=== PATIENT | female | born 1970 | race Caucasian/White ===

== ENCOUNTER 2023-10-11 13:42 | Emergency (ER) | payer BC, SELFPAY ==
[2023-10-11 13:45] VITALS: BP 150/90
[2023-10-11 14:18] VITALS: BP 142/76
[2023-10-11 14:20] VITALS: BMI 22.7
--- NOTE | 2023-10-11 14:25 | EDRN ---
the pt was brought from the waiting room to Bed #4, the pt changed into a gown and is resting in stretcher, this RN placed the pt on monitor, pt is NSR in the 80's, RA Sp02 96%, no s/s of distress, pt sounds coarse and has a slight expiratory
wheeze, the pt is not tachypnic, the pt stated to this RN, 'I just feel like my throat is tight and it has felt like it is closing since 8am', the pt handed this RN a form that is from [employer] and it is an Emergency Room
Response Plan, this was given to provider, the pt is resting in stretcher in the lowest position, side rails up x2, call red within reach, HOB elevated, will continue to monitor the pt closely
--- NOTE | 2023-10-11 14:50 | ED.GENMED ---
History of Present Illness
General
Chief Complaint: Allergic Reaction
Source: patient
Exam Limitations: none
Time Seen by Provider: 10/11/23 14:41
Nursing documentation reviewed up to this point in time: agreed with
Travel History
Have you had any contact with someone who has COVID-19?: No
Do you have any symptoms of coronavirus? Fever > 100 degrees, chills, cough, shortness of breath, sore throat, loss of taste or smell, muscle aches, or headache?: No
History of Present Illness
History of Present Illness:
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
swelling up gave herself an epi shot p.o. Benadryl steroid and H2 shadia here she continues to feel little bit hoarse with swelling in her throat no nausea or vomiting no wheezing
Past History
Past History
ED Past Medical History: Other (migraines mast cell activation)
ED Past Surgical History: Appendectomy and Gynecological; Negative
Social History
Tobacco: Non-smoker
Alcohol: None
Drug: None
Personal:
Living: with family
Employment: Employed
Family History
Family History: Hypertension; Negative Diabetes
Review of Systems
Review of Systems
All Other Systems: Not applicable
Constitutional: Denies fever or fatigue
EENT: Reports mouth swelling and other
Respiratory: Denies cough or trouble breathing
Cardiac: Reports no symptoms
ABD/GI: Reports no symptoms
: Reports no symptoms
Musculoskeletal: Reports no symptoms
Skin: Reports no symptoms
Phy Exam
Physical Exam
Physical Exam:
Physical Exam
General: no apparent distress, not acutely ill
Neck: Posterior pharynx uvula appears swollen voice appears slightly hoarse
Heart: s1/s2 regular rate and rhythm, no murmur. equal radial pulses.
Lungs: no acute respiratory distress. clear bilaterally without wheeze
Abdomen: Nontender
Neuro: alert and oriented. no focal neurological deficits
Skin: no rash
Psychiatric: well kept. interactive and cooperative
Extremities: no edema.
Course
Orders/Labs/Results
Orders:
Orders
10/11/23 14:48
IV Insert/Care/Rem.- Treatment PRN
0.9% Sodium Chloride 1000 ml [Nss] 1,000 ml IV BOLUS
Diphenhydramine [Benadryl] 25 mg IV NOW STA
EPINEPHrine PF [Adrenalin] 0.3 mg IM NOW STA
Vital Signs
Initial and Last Documented VS:
Initial Vital Signs
Temp Pulse Resp BP Pulse Ox
98.2 F 92 16 150/90 99
10/11/23 13:45 10/11/23 13:45 10/11/23 13:45 10/11/23 13:45 10/11/23 13:45
Last Documented Vital Signs
Temp Pulse Resp BP Pulse Ox
98.2 F 83 13 102/65 98
10/11/23 13:45 10/11/23 16:30 10/11/23 16:30 10/11/23 16:00 10/11/23 16:30
MDM/Problems Addressed
Differential Diagnosis Includes:
Allergic reaction mast activation syndrome,
MDM/Problems Addressed:
Allergic mast cell activation
Chronic conditions affecting care:
Mast cell activation allergy
*Pulse Oximetry
Patient hypoxic: no
*Patent Agent Interpretation
Rate: normal
Interpretation: normal
Heart Rate: 78
Rhythm: sinus
*Critical Care Note
Total Time (30-74mins, 75-104mins- exclusive of procedures): 12
Update Note
Update Note:
Will redose her with epi and Benadryl, still has some mild symptoms
5 PM, patient appears comfortable minimal swelling of her uvula at this time, hoarseness is improved she subjectively feels better
ED Attending Note
-
Portions of this chart may have been created with voice recognition software.� Occasional wrong word or��sound alike� substitutions may have occurred due to the inherent limitations of voice recognition software.
Discharge Plan
Departure
Patient Disposition: Home (Routine Discharge)
Date of Disposition: 10/11/23
Time of Disposition: 17:01
Patient with high blood pressure during this ER visit?: No
Condition: Good
Discharge Problem:
Allergic reaction
Instructions: Allergic Reaction ED
Prescriptions:
New
prednisone 20 mg tablet
40 mg PO DAILY Qty: 8 0RF
epinephrine [EpiPen] 0.3 mg/0.3 mL auto-injector
0.3 mg IM .STAT PRN (Reason: anaphylaxis) Qty: 1 6RF
No Action
ascorbic acid (vitamin C) [Vitamin C] 500 MG tablet
1,000 mg PO DAILY
acetaminophen [Tylenol Extra Strength] 500 MG tablet
1,000 mg PO PRN PRN (Reason: headaches)
lorazepam 0.5 MG tablet
0.5 mg PO HS PRN (Reason: panic attack-PTSD)
diphenhydramine HCl [Banophen] 25 MG capsule
1 - 2 tab PO HS PRN (Reason: allergies, sleep)
azelastine 1 SPRAY aerosol,spray
1 spray intranasal BID
albuterol sulfate [Ventolin HFA] 90 MCG/PUFF HFA aerosol inhaler
1 puff inhalation PRN PRN (Reason: allergies)
fluticasone propionate 1 SPRAY spray,suspension
1 spray intranasal BID
biotin-folic acid-B comp C 1 TAB tablet
1 tab PO DAILY
fexofenadine-pseudoephedrine [Alayna-D 24 Hour] 1 EACH tablet extended release 24 hr
1 ea PO DAILY
budesonide-formoterol [Symbicort] 1 PUFF HFA aerosol inhaler
1 puff inhalation BID PRN (Reason: allergies)
Bone Strong
2 tab PO DAILY
Turmeric
740 mg PO DAILY
hydrocodone-acetaminophen 1 TABLET tablet
1 - 2 tab PO Q4HPRN PRN (Reason: Mod-severe pain) 7 Days Qty: 30 0RF
clarithromycin [Biaxin XL] 500 MG tablet extended release 24 hr
500 mg PO BID 7 Days Qty: 14 0RF
oxycodone-acetaminophen 5 MG/325 MG tablet
1 tab PO Q6HPRN PRN (Reason: pain) Qty: 10 0RF
prednisone 50 MG tablet
50 mg PO DAILY Qty: 5 0RF
ondansetron 4 MG tablet,disintegrating
4 mg PO TIDPRN PRN (Reason: nausea/vomiting) Qty: 10 0RF
Referrals:
Beny Donahue MD [Family Provider] -
Interventions
Interventions:
*Risk Screen - Suicide Last Done: 10/11/23 14:20
*General Assessment Last Done: 10/11/23 14:20
*Neglect/Abuse Screening Last Done: 10/11/23 14:20
ED- Fall Risk Assessment Last Done: 10/11/23 14:20
*ED COVID-19 Vaccine History Last Done: 10/11/23 14:20
ED- Cardiac Assessment Last Done: 10/11/23 14:20
ED- Pulmonary Assessment Last Done: 10/11/23 14:20
ED-Skin Assessment Last Done: 10/11/23 14:20
[2023-10-11 15:00] VITALS: BP 130/87
[2023-10-11] MEDS: ADRENALIN 0.299999999999999989 MG IM (15:03)
[2023-10-11] MEDS: BENADRYL 25 MG IV (15:05)
[2023-10-11] MEDS: NSS 1000 IV (15:05)
[2023-10-11 16:00] VITALS: BP 102/65
[2023-10-11 17:00] VITALS: BP 115/71
== END 2023-10-11 17:13 | disposition home or self-care (01) ==
LOC: EMR 13:42
PROVIDERS: EMERGENCY PHYSICIAN Emergency Medicine; FAMILY PHYSICIAN Family Medicine
DX: T78.40XA Allergy, unspecified, initial encounter (principal); R22.0 Localized swelling, mass and lump, head; R49.0 Dysphonia; R06.2 Wheezing; D89.40 Mast cell activation, unspecified; I73.00 Raynaud's syndrome without gangrene; Z88.1 Allergy status to other antibiotic agents; Z88.3 Allergy status to other anti-infective agents; Z88.0 Allergy status to penicillin; Z88.8 Allergy status to other drugs, medicaments and biological substances; Z91.018 Allergy to other foods; Z91.048 Other nonmedicinal substance allergy status
CPT/HCPCS: 99285; 96374; 96361; 96372

== ENCOUNTER 2023-11-05 16:37 | Emergency (ER) | payer BC, SELFPAY ==
[2023-11-05 16:39] VITALS: BP 143/98
[2023-11-05 17:00] VITALS: BMI 25.0
[2023-11-05] MEDS: ADRENALIN 0.299999999999999989 MG IM (17:00)
[2023-11-05] MEDS: BENADRYL 25 MG IV (17:05)
[2023-11-05 17:08] VITALS: BP 149/103
[2023-11-05] MEDS: DELTASONE 20 MG PO (17:10)
[2023-11-05 18:00] VITALS: BP 124/75
--- NOTE | 2023-11-05 18:32 | ED.GENMED ---
History of Present Illness
General
Chief Complaint: Allergic Reaction
Source: patient
Exam Limitations: none
Time Seen by Provider: 11/05/23 16:51
Nursing documentation reviewed up to this point in time: agreed with
Travel History
Have you had any contact with someone who has COVID-19?: No
Do you have any symptoms of coronavirus? Fever > 100 degrees, chills, cough, shortness of breath, sore throat, loss of taste or smell, muscle aches, or headache?: No
History of Present Illness
History of Present Illness:
Patient is a 53-year-old female with a history of mast cell activation syndrome
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
pt says she breathed in someone's perfume and immediately felt throat closing sensation and voice hoarseness.
she took prednisoen 40 mg, benadryl 25 mg, pepcid 40 mg and albuterol inhaler
she was devorah to use her epi pen when someone just took her to the ER instead
she feels no change in symptms destpie that medication ahead of time
she also feels no worse
she denies fever, chills, cp, wheezing, syncope, abdominal pain, vomiing, diarrhea.
Past History
Past History
ED Past Medical History: Other (migraines mast cell activation)
ED Past Surgical History: Appendectomy and Gynecological; Negative
Social History
Tobacco: Non-smoker
Alcohol: None
Drug: None
Personal:
Living: with family
Employment: Employed
Family History
Family History: Hypertension; Negative Diabetes
Review of Systems
Review of Systems
Allergies reviewed?: Yes
All Other Systems: Not applicable
Phy Exam
Physical Exam
Physical Exam:
GENERAL: Alert , in no apparent distress
EYE: pupils equal and reactive
NECK: Supple
ENT: o/p clr, mmm.
no uvular swelling
slightly hoarse voice
CARDIAC: Regular rate and rhythm .
LUNGS: Clear breath sounds bilaterally, no acute respiratory distress, no wheezes/rales/rhonchi
ABDOMEN: Soft, without focal tenderness, no r/g, no cvat, normal bowel sounds
NEUROLOGICAL: Alert and oriented, no focal neuro deficits
SKIN: Warm and dry, skin intact.
MUSCULOSKELETAL: No edema, well perfused. neg mandy's sign
PSYCH: Normal and appropriate interaction.
Course
Orders/Labs/Results
Orders:
Orders
11/05/23 16:51
Diphenhydramine [Benadryl] 25 mg IV NOW STA
EPINEPHrine PF [Adrenalin] 0.3 mg IM NOW STA
Prednisone [Deltasone] 20 mg PO NOW STA
Vital Signs
Initial and Last Documented VS:
Initial Vital Signs
Temp Pulse Resp BP Pulse Ox
97.9 F 86 18 143/98 97
11/05/23 16:39 11/05/23 16:39 11/05/23 16:39 11/05/23 16:39 11/05/23 16:39
Last Documented Vital Signs
Temp Pulse Resp BP Pulse Ox
97.9 F 81 14 124/75 96
11/05/23 16:39 11/05/23 18:45 11/05/23 18:45 11/05/23 18:00 11/05/23 18:45
MDM/Problems Addressed
Differential Diagnosis Includes:
anaphylaxis, allergic reaction
MDM/Problems Addressed:
53 y/o F with h/o mast cell activation syndrome
here for concerns for her anaphylaxis which she has had often times previously when she inhaled some perfume
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
she is c/o sob and throat closin sensation
she would normally use her epi
then she gets steroid taper when she gets dsicharged
pred 40 x 3, 30 x 3, 20 x 3, 10 x 3
I did not feel strongly about giving the epinephrine and generalized based on her very minimal symptoms however she comes with a protocol that she is to receive epinephrine during these cases which she got.
11/05/2023 1845 PM
Patient says she feels slightly better. She certainly feels no worse. She is not having any tachycardia as a response to the epi. I anticipate discharging her home with prednisone taper
11/05/2023 1910 PM patient feels well enough to go home. She will return if worse
*Critical Care Note
Total Time (30-74mins, 75-104mins- exclusive of procedures): Not Applicable
ED Attending Note
-
Portions of this chart may have been created with voice recognition software.� Occasional wrong word or��sound alike� substitutions may have occurred due to the inherent limitations of voice recognition software.
Discharge Plan
Departure
Patient Disposition: Home (Routine Discharge)
Date of Disposition: 11/05/23
Time of Disposition: 19:09
Patient with high blood pressure during this ER visit?: No
Condition: Fair
Covid-19: Not Applicable
Discharge Problem:
Allergic reaction
Instructions: Anaphylaxis (DC), Allergic Reaction ED
Prescriptions:
New
prednisone 10 mg Tablet
See Rx Instructions .ROUTE .COMPLEX Qty: 30 0RF
Rx Instructions:
Take By Mouth:
40 mg daily x3 days, 30 mg daily x3 days,
20 mg daily x3 days, 10 mg daily x3 days.
No Action
ascorbic acid (vitamin C) [Vitamin C] 500 MG tablet
1,000 mg PO DAILY
acetaminophen [Tylenol Extra Strength] 500 MG tablet
1,000 mg PO PRN PRN (Reason: headaches)
lorazepam 0.5 MG tablet
0.5 mg PO HS PRN (Reason: panic attack-PTSD)
diphenhydramine HCl [Banophen] 25 MG capsule
1 - 2 tab PO HS PRN (Reason: allergies, sleep)
azelastine 1 SPRAY aerosol,spray
1 spray intranasal BID
albuterol sulfate [Ventolin HFA] 90 MCG/PUFF HFA aerosol inhaler
1 puff inhalation PRN PRN (Reason: allergies)
fluticasone propionate 1 SPRAY spray,suspension
1 spray intranasal BID
biotin-folic acid-B comp C 1 TAB tablet
1 tab PO DAILY
fexofenadine-pseudoephedrine [Alayna-D 24 Hour] 1 EACH tablet extended release 24 hr
1 ea PO DAILY
budesonide-formoterol [Symbicort] 1 PUFF HFA aerosol inhaler
1 puff inhalation BID PRN (Reason: allergies)
Bone Strong
2 tab PO DAILY
Turmeric
740 mg PO DAILY
hydrocodone-acetaminophen 1 TABLET tablet
1 - 2 tab PO Q4HPRN PRN (Reason: Mod-severe pain) 7 Days Qty: 30 0RF
clarithromycin [Biaxin XL] 500 MG tablet extended release 24 hr
500 mg PO BID 7 Days Qty: 14 0RF
oxycodone-acetaminophen 5 MG/325 MG tablet
1 tab PO Q6HPRN PRN (Reason: pain) Qty: 10 0RF
prednisone 50 MG tablet
50 mg PO DAILY Qty: 5 0RF
ondansetron 4 MG tablet,disintegrating
4 mg PO TIDPRN PRN (Reason: nausea/vomiting) Qty: 10 0RF
prednisone 20 mg tablet
40 mg PO DAILY Qty: 8 0RF
epinephrine [EpiPen] 0.3 mg/0.3 mL auto-injector
0.3 mg IM .STAT PRN (Reason: anaphylaxis) Qty: 1 6RF
Referrals:
Beny Donahue MD [Family Provider] -
Activity Restrictions/Additional Instructions:
YOU WERE GIVEN EPINEPHRINE FOR AN ALLERGIC REACTION TODAY
TAKE PREDNISOEN 40 MG ONCE A DAY X 3 DAYS, THEN 30 MG ONCE A DAY X 3 DAYS, ETC
CONTINUE BENADRYL 2-3 TIMES A DAY NEEDED
RETURN FOR ANY CONCERNS.
Interventions
Interventions:
*Risk Screen - Suicide Last Done: 11/05/23 17:00
*General Assessment Last Done: 11/05/23 17:00
*Neglect/Abuse Screening Last Done: 11/05/23 17:00
ED- Fall Risk Assessment Last Done: 11/05/23 17:00
*ED COVID-19 Vaccine History Last Done: 11/05/23 17:00
*Nursing Disposition Last Done: 11/05/23 19:19
ED- Cardiac Assessment Last Done: 11/05/23 17:00
ED- Pulmonary Assessment Last Done: 11/05/23 17:00
ED-Skin Assessment Last Done: 11/05/23 17:00
Discharge Date and Time
Discharge Date/Time: 11/05/23 19:19
== END 2023-11-05 19:19 | disposition home or self-care (01) ==
LOC: EMR 16:37
PROVIDERS: EMERGENCY PHYSICIAN Emergency Medicine; FAMILY PHYSICIAN Family Medicine
DX: T78.40XA Allergy, unspecified, initial encounter (principal); X58.XXXA Exposure to other specified factors, initial encounter; D89.40 Mast cell activation, unspecified; I10 Essential (primary) hypertension
CPT/HCPCS: 99282; 96374; 96372

== ENCOUNTER 2024-03-16 08:30 | Emergency (ER) | payer BC, SELFPAY ==
[2024-03-16 08:36] VITALS: BP 139/95
[2024-03-16 08:55] VITALS: BMI 23.9
[2024-03-16 08:56] VITALS: BP 138/92
--- NOTE | 2024-03-16 08:57 | ED.GENMED ---
History of Present Illness
<Ethan Randhawa MD, Resident - Last Filed: 03/16/24 12:08>
General
Chief Complaint: Allergic Reaction
Source: patient
Time Seen by Provider: 03/16/24 08:44
History of Present Illness
History of Present Illness:
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 She has PMH of Mast Cell disease with chemical sensitivity/reactivity. Prior to ED arrival, she took Pepcid, Benadryl and Extra Strength Tylenol. Pt reports chest tightness and SOB. Does not have
any chest pain, palpitations, muscle pain or weakness or rashes.
If applicable-neuro sx onset
Onset of symptoms known: Yes
Date of onset of symptoms: 03/16/24
Past History
<Ethan Randhawa MD, Resident - Last Filed: 03/16/24 12:08>
Past History
ED Past Medical History: Other (migraines mast cell activation)
ED Past Surgical History: Appendectomy and Gynecological; Negative
Social History
Tobacco: Non-smoker
Alcohol: None
Drug: None
Personal:
Living: with family
Employment: Employed
Family History
Family History: Hypertension; Negative Diabetes
Review of Systems
<Ethan Randhawa MD, Resident - Last Filed: 03/16/24 12:08>
Review of Systems
Constitutional: Reports no symptoms
EENT: Reports other (throat tightness and SOB)
Respiratory: Reports trouble breathing (mild) and other (difficulty speaking)
Cardiac: Reports no symptoms
ABD/GI: Reports no symptoms
Musculoskeletal: Reports no symptoms
Skin: Reports no symptoms
Phy Exam
<Ethan Randhawa MD, Resident - Last Filed: 03/16/24 12:08>
General Physical Exam
General Presentation: well appearing and mild distress
General age: appears stated age
General Habitus: normal
General Mental: alert
General Hydration: appears well hydrated
Cardiovascular Exam
Cardiovascular Exam: regular rate/rhythm, no edema and no JVD
Pulmonary Exam
Pulmonary Exam: lungs clear, no respiratory distress, no rales, chest non tender, no crackles, no rhonchi, no stridor, no wheezing and no cough
Skin Exam
Skin Exam: normal color, warm/dry, no rash and no petechia
Psychiatric Exam
Psychiatric Exam: normal mood/affect
Course
<Ethan Randhawa MD, Resident - Last Filed: 03/16/24 12:08>
Orders/Labs/Results
Orders:
Orders
03/16/24 08:50
EPINEPHrine PF [Adrenalin] 1 mg .ROUTE .STK-MED ONE
03/16/24 09:09
EPINEPHrine PF [Adrenalin] 0.3 mg IM NOW STA
Vital Signs
Initial and Last Documented VS:
Initial Vital Signs
Temp Pulse Resp BP Pulse Ox
99.5 F 85 18 139/95 98
03/16/24 08:36 03/16/24 08:36 03/16/24 08:36 03/16/24 08:36 03/16/24 08:36
Last Documented Vital Signs
Temp Pulse Resp BP Pulse Ox
99.5 F 61 18 119/81 98
03/16/24 08:36 03/16/24 11:08 03/16/24 11:08 03/16/24 11:08 03/16/24 11:08
<Ronald Clinton DO - Last Filed: 03/16/24 09:11>
Orders/Labs/Results
Orders:
Orders
03/16/24 08:50
EPINEPHrine PF [Adrenalin] 1 mg .ROUTE .STK-MED ONE
03/16/24 09:09
EPINEPHrine PF [Adrenalin] 0.3 mg IM NOW STA
Vital Signs
Initial and Last Documented VS:
Initial Vital Signs
Temp Pulse Resp BP Pulse Ox
99.5 F 85 18 139/95 98
03/16/24 08:36 03/16/24 08:36 03/16/24 08:36 03/16/24 08:36 03/16/24 08:36
Last Documented Vital Signs
Temp Pulse Resp BP Pulse Ox
99.5 F 61 18 119/81 98
03/16/24 08:36 03/16/24 11:08 03/16/24 11:08 03/16/24 11:08 03/16/24 11:08
<Ethan Randhawa MD, Resident - Last Filed: 03/16/24 12:08>
MDM/Problems Addressed
Differential Diagnosis Includes:
anaphylaxis
MDM/Problems Addressed:
53 YO F with PMH of mast cell disease presenting to ED with concern for anaphylaxis after exposure to cologne. Patient was treated with 0.3 mg IM epi and is stable.
Chronic conditions affecting care:
mast cell disease
Acute Exacerbation and/or Progression of Chronic Illness:
mast cell disease
<Ethan Randhawa MD, Resident - Last Filed: 03/16/24 12:08>
*Critical Care Note
Total Time (30-74mins, 75-104mins- exclusive of procedures): Not Applicable
ED Attending Note
<Ethan Randhawa MD, Resident - Last Filed: 03/16/24 12:08>
-
Portions of this chart may have been created with voice recognition software.� Occasional wrong word or��sound alike� substitutions may have occurred due to the inherent limitations of voice recognition software.
<Ronald Clinton, DO - Last Filed: 03/16/24 09:11>
ED Attending Note
Patient seen and examined by attending physician: Yes
I performed a history and physical exam of patient and discussed management with resident, I reviewed resident's note and agree with documented findings and plan of care.: Yes
ED Attending Note:
I have reviewed and agree with patient treatment plan by Ethan Randhawa D.O. My exam revealed
Physical Exam
General: no apparent distress, not acutely ill
Neck: supple. no meningeal signs. normal posterior pharynx
Heart: s1/s2 regular rate and rhythm, no murmur. equal radial
pulses.
HEENT: Pupils equal round reactive to light, EOMI
Lungs: no acute respiratory distress. clear bilaterally
Abdomen: normal bowel sounds. not tender. no CVAT
Neuro: alert and oriented. no focal neurological deficits cranial nerves II through XII intact
Skin: no rash
Psychiatric: well kept. interactive and cooperative
Extremities: no edema. no calf tenderness. negative homans. good distal pulses
53-year-old female who does not appear in acute distress, but complains she is short of breath and feels her throat swelling. Epi 0.3 mg IM given. IV established. Will observe.
Discharge Plan
Departure
Patient Disposition: Home (Routine Discharge)
Date of Disposition: 03/16/24
Time of Disposition: 10:44
Patient with high blood pressure during this ER visit?: Yes
Condition: Good
Discharge Problem:
Allergic reaction
Instructions: Anaphylaxis, BLOOD PRESSURE
Prescriptions:
No Action
ascorbic acid (vitamin C) [Vitamin C] 500 MG tablet
1,000 mg PO DAILY
acetaminophen [Tylenol Extra Strength] 500 MG tablet
1,000 mg PO PRN PRN (Reason: headaches)
lorazepam 0.5 MG tablet
0.5 mg PO HS PRN (Reason: panic attack-PTSD)
diphenhydramine HCl [Banophen] 25 MG capsule
1 - 2 tab PO HS PRN (Reason: allergies, sleep)
azelastine 1 SPRAY aerosol,spray
1 spray intranasal BID
albuterol sulfate [Ventolin HFA] 90 MCG/PUFF HFA aerosol inhaler
1 puff inhalation PRN PRN (Reason: allergies)
fluticasone propionate 1 SPRAY spray,suspension
1 spray intranasal BID
biotin-folic acid-B comp C 1 TAB tablet
1 tab PO DAILY
fexofenadine-pseudoephedrine [Alayna-D 24 Hour] 1 EACH tablet extended release 24 hr
1 ea PO DAILY
budesonide-formoterol [Symbicort] 1 PUFF HFA aerosol inhaler
1 puff inhalation BID PRN (Reason: allergies)
Bone Strong
2 tab PO DAILY
Turmeric
740 mg PO DAILY
hydrocodone-acetaminophen 1 TABLET tablet
1 - 2 tab PO Q4HPRN PRN (Reason: Mod-severe pain) 7 Days Qty: 30 0RF
clarithromycin [Biaxin XL] 500 MG tablet extended release 24 hr
500 mg PO BID 7 Days Qty: 14 0RF
oxycodone-acetaminophen 5 MG/325 MG tablet
1 tab PO Q6HPRN PRN (Reason: pain) Qty: 10 0RF
prednisone 50 MG tablet
50 mg PO DAILY Qty: 5 0RF
ondansetron 4 MG tablet,disintegrating
4 mg PO TIDPRN PRN (Reason: nausea/vomiting) Qty: 10 0RF
prednisone 20 mg tablet
40 mg PO DAILY Qty: 8 0RF
epinephrine [EpiPen] 0.3 mg/0.3 mL auto-injector
0.3 mg IM .STAT PRN (Reason: anaphylaxis) Qty: 1 6RF
prednisone 10 mg Tablet
See Rx Instructions .ROUTE .COMPLEX Qty: 30 0RF
Rx Instructions:
Take By Mouth:
40 mg daily x3 days, 30 mg daily x3 days,
20 mg daily x3 days, 10 mg daily x3 days.
Referrals:
Beny Donahue MD [Family Provider] - Call in 1-3 days for appt
Interventions
Interventions:
*Risk Screen - Suicide Last Done: 03/16/24 08:36
*General Assessment Last Done: 03/16/24 08:36
*Neglect/Abuse Screening Last Done: 03/16/24 08:36
ED- Fall Risk Assessment Last Done: 03/16/24 08:58
*ED COVID-19 Vaccine History Last Done: 03/16/24 08:56
*Nursing Disposition Last Done: 03/16/24 11:08
ED- Cardiac Assessment Last Done: 03/16/24 09:00
ED- Pulmonary Assessment Last Done: 03/16/24 09:00
ED-Skin Assessment Last Done: 03/16/24 09:01
Discharge Date and Time
Discharge Date/Time: 03/16/24 11:11
Print Language: BULGARIAN
[2024-03-16 09:00] VITALS: BP 132/94
[2024-03-16 10:00] VITALS: BP 115/84
[2024-03-16] MEDS: ADRENALIN 0.299999999999999989 MG IM (10:15)
[2024-03-16 11:08] VITALS: BP 119/81
== END 2024-03-16 11:11 | disposition home or self-care (01) ==
LOC: EMR 08:30
PROVIDERS: EMERGENCY PHYSICIAN Emergency Medicine; FAMILY PHYSICIAN Family Medicine
DX: T78.49XA Other allergy, initial encounter (principal); R07.89 Other chest pain; R06.02 Shortness of breath; R03.0 Elevated blood-pressure reading, without diagnosis of hypertension; G43.909 Migraine, unspecified, not intractable, without status migrainosus; D89.40 Mast cell activation, unspecified; Z88.1 Allergy status to other antibiotic agents; Z88.3 Allergy status to other anti-infective agents; Z88.0 Allergy status to penicillin; Z88.8 Allergy status to other drugs, medicaments and biological substances; Z91.018 Allergy to other foods; Z91.048 Other nonmedicinal substance allergy status
CPT/HCPCS: 99284; 96372

== ENCOUNTER 2024-03-18 19:41 | Observation (INO) | payer BC, SELFPAY ==
[2024-03-18] VITALS (11 sets, daily range): BP systolic 105–163; BP diastolic 67–98; BMI 24.1; BMI 25.8
--- NOTE | 2024-03-18 12:05 | ED.GENMED ---
History of Present Illness
<Ethan Randhawa DO, Resident - Last Filed: 03/18/24 14:28>
General
Chief Complaint: Allergic Reaction
Source: patient
Time Seen by Provider: 03/18/24 12:00
History of Present Illness
History of Present Illness:
Pt is a 53 F with hx of mast cell disease presenting to the ED with anaphylactic reaction to cologne. She took Pepcid, Benadryl, Tylenol, Albuterol and administered her epi pen at 11:45 AM. She was seen in the ED on 03/16 for similar reaction and
reported residual tight throat sensation yesterday. She reports chest and throat tightness and mild SOB. No headaches, LOC, CP or dizziness.
If applicable-neuro sx onset
Onset of symptoms known: Yes
Date of onset of symptoms: 03/18/24
Time of onset of symptoms: 11:45
Past History
<Ethan Randhawa DO, Resident - Last Filed: 03/18/24 14:28>
Past History
ED Past Medical History: Other (migraines mast cell activation)
ED Past Surgical History: Appendectomy and Gynecological; Negative
Social History
Tobacco: Non-smoker
Alcohol: None
Drug: None
Personal:
Living: with family
Employment: Employed
Family History
Family History: Hypertension; Negative Diabetes
Review of Systems
<Ethan Randhawa DO, Resident - Last Filed: 03/18/24 14:28>
Review of Systems
Constitutional: Reports no symptoms
EENT: Reports sore throat and other (throat tightness)
Respiratory: Reports trouble breathing (mild) and other (chest tightness)
Cardiac: Reports no symptoms
ABD/GI: Reports no symptoms
Skin: Reports no symptoms
Neurological: Reports no symptoms
Psychiatric: Reports no symptoms
Phy Exam
<Ethan Randhawa DO, Resident - Last Filed: 03/18/24 14:28>
General Physical Exam
General Presentation: well appearing and no apparent distress
General age: appears stated age
General Habitus: normal
General Mental: alert
General Hydration: appears well hydrated
ENT Exam
ENT Exam: EOMI, pharynx normal and neck supple
Cardiovascular Exam
Cardiovascular Exam: regular rate/rhythm, no edema, no gallop, no JVD, no murmur and normal peripheral pulses
Pulmonary Exam
Pulmonary Exam: lungs clear, no respiratory distress, no rales, chest non tender, no crackles, no rhonchi, no stridor, no wheezing and no cough
Course
<Ethan Randhawa DO, Resident - Last Filed: 03/18/24 14:28>
Orders/Labs/Results
Orders:
Orders
03/18/24 13:27
EPINEPHrine PF [Adrenalin] 0.3 mg IM NOW STA
03/18/24 16:37
Basic Metabolic Panel Urgent
Complete Blood Count/With Diff Urgent
0.9% Sodium Chloride 500 ml [Nss] 500 ml IV BOLUS
Diphenhydramine [Benadryl] 25 mg IV NOW STA
Famotidine [Pepcid] 20 mg IV NOW STA
MethylPREDNISolone PF [Solu-Medrol Pf] 125 mg IV NOW STA
Pulse Ox/cont/shift [RESP] Stat
Quantity: 1
03/18/24 16:38
EPINEPHrine PF [Adrenalin] 0.3 mg IM NOW STA
Vital Signs
Initial and Last Documented VS:
Initial Vital Signs
Temp Pulse Resp BP Pulse Ox
97.9 F 82 18 163/98 99
03/18/24 11:54 03/18/24 11:54 03/18/24 11:54 03/18/24 11:54 03/18/24 11:54
Last Documented Vital Signs
Temp Pulse Resp BP Pulse Ox
97.9 F 91 23 107/67 96
03/18/24 11:54 03/18/24 15:00 03/18/24 15:00 03/18/24 15:00 03/18/24 15:00
<Ronald Clinton DO - Last Filed: 03/18/24 13:36>
Orders/Labs/Results
Orders:
Orders
03/18/24 13:27
EPINEPHrine PF [Adrenalin] 0.3 mg IM NOW STA
03/18/24 16:37
Basic Metabolic Panel Urgent
Complete Blood Count/With Diff Urgent
0.9% Sodium Chloride 500 ml [Nss] 500 ml IV BOLUS
Diphenhydramine [Benadryl] 25 mg IV NOW STA
Famotidine [Pepcid] 20 mg IV NOW STA
MethylPREDNISolone PF [Solu-Medrol Pf] 125 mg IV NOW STA
Pulse Ox/cont/shift [RESP] Stat
Quantity: 1
03/18/24 16:38
EPINEPHrine PF [Adrenalin] 0.3 mg IM NOW STA
Vital Signs
Initial and Last Documented VS:
Initial Vital Signs
Temp Pulse Resp BP Pulse Ox
97.9 F 82 18 163/98 99
03/18/24 11:54 03/18/24 11:54 03/18/24 11:54 03/18/24 11:54 03/18/24 11:54
Last Documented Vital Signs
Temp Pulse Resp BP Pulse Ox
97.9 F 91 23 107/67 96
03/18/24 11:54 03/18/24 15:00 03/18/24 15:00 03/18/24 15:00 03/18/24 15:00
<Clarke Elizondo MD - Last Filed: 03/18/24 16:39>
Orders/Labs/Results
Orders:
Orders
03/18/24 13:27
EPINEPHrine PF [Adrenalin] 0.3 mg IM NOW STA
03/18/24 16:37
Basic Metabolic Panel Urgent
Complete Blood Count/With Diff Urgent
0.9% Sodium Chloride 500 ml [Nss] 500 ml IV BOLUS
Diphenhydramine [Benadryl] 25 mg IV NOW STA
Famotidine [Pepcid] 20 mg IV NOW STA
MethylPREDNISolone PF [Solu-Medrol Pf] 125 mg IV NOW STA
Pulse Ox/cont/shift [RESP] Stat
Quantity: 1
03/18/24 16:38
EPINEPHrine PF [Adrenalin] 0.3 mg IM NOW STA
Vital Signs
Initial and Last Documented VS:
Initial Vital Signs
Temp Pulse Resp BP Pulse Ox
97.9 F 82 18 163/98 99
03/18/24 11:54 03/18/24 11:54 03/18/24 11:54 03/18/24 11:54 03/18/24 11:54
Last Documented Vital Signs
Temp Pulse Resp BP Pulse Ox
97.9 F 91 23 107/67 96
03/18/24 11:54 03/18/24 15:00 03/18/24 15:00 03/18/24 15:00 03/18/24 15:00
<Ethan Randhawa DO, Resident - Last Filed: 03/18/24 14:28>
MDM/Problems Addressed
Differential Diagnosis Includes:
anaphylaxis
MDM/Problems Addressed:
Pt is a 53 F with hx of mast cell disease presenting to the ED with anaphylactic reaction to cologne.Patient is stable and being monitored post self-epi administration. She was given another dose of IM epinephrine in the ED. We will continue to
monitor and if she improves and remains stable, she will be DC home.
Chronic conditions affecting care:
mast cell disease
Acute Exacerbation and/or Progression of Chronic Illness:
mast cell disease
<Ethan Randhawa DO, Resident - Last Filed: 03/18/24 14:28>
*Pulse Oximetry
Patient hypoxic: no
*EKG
Interpreted by ED Provider?: NA
*Health Care Recruiter Interpretation
Rate: Health Care Recruiter- N/A
*Critical Care Note
Total Time (30-74mins, 75-104mins- exclusive of procedures): Not Applicable
ED Attending Note
<Ethan Randhawa DO, Resident - Last Filed: 03/18/24 14:28>
-
Portions of this chart may have been created with voice recognition software.� Occasional wrong word or��sound alike� substitutions may have occurred due to the inherent limitations of voice recognition software.
<Ronald Clinton DO - Last Filed: 03/18/24 13:36>
ED Attending Note
Patient seen and examined by attending physician: Yes
I performed a history and physical exam of patient and discussed management with resident, I reviewed resident's note and agree with documented findings and plan of care.: Yes
ED Attending Note:
I reviewed and agree with history and treatment plan by Ethan Randhawa. My exam revealed
Physical Exam
General: no apparent distress, not acutely ill
Neck: supple. no meningeal signs. normal posterior pharynx
Heart: s1/s2 regular rate and rhythm, no murmur. equal radial
pulses.
HEENT: Pupils equal round reactive to light, EOMI
Lungs: no acute respiratory distress. clear bilaterally
Abdomen: normal bowel sounds. not tender. no CVAT
Neuro: alert and oriented. no focal neurological deficits cranial nerves II through XII intact
Skin: no rash
Psychiatric: well kept. interactive and cooperative
Extremities: no edema. no calf tenderness. negative homans. good distal pulses
Upon reevaluation, patient states her throat was feeling sore. Will give repeat dose of epi and observe.
<Clarke Elizondo MD - Last Filed: 03/18/24 16:39>
ED Attending Note
ED Attending Note:
I reviewed and agree with history and treatment plan by Ethan Randhawa. My exam revealed
Physical Exam
General: no apparent distress, not acutely ill
Neck: supple. no meningeal signs. normal posterior pharynx
Heart: s1/s2 regular rate and rhythm, no murmur. equal radial
pulses.
HEENT: Pupils equal round reactive to light, EOMI
Lungs: no acute respiratory distress. clear bilaterally
Abdomen: normal bowel sounds. not tender. no CVAT
Neuro: alert and oriented. no focal neurological deficits cranial nerves II through XII intact
Skin: no rash
Psychiatric: well kept. interactive and cooperative
Extremities: no edema. no calf tenderness. negative homans. good distal pulses
Upon reevaluation, patient states her throat was feeling sore. Will give repeat dose of epi and observe.
Channick: Patient signed out to me pending reevaluation. At 4:30 PM patient states that she felt like her throat was tight and swollen. On my assessment she is in no distress has no swelling of her tongue lips or posterior pharynx. She is
breathing comfortably on room air without wheezing. There is no stridor. She does have a hoarse voice. There is no rash. Will place IV give dose of Solu-Medrol Benadryl Pepcid as well as a repeat EpiPen. Plan to admit for persistent allergic
reaction/mast cell activation
Discharge Plan
Departure
Patient with high blood pressure during this ER visit?: No
Condition: Fair
Discharge Problem:
Mast cell activation syndrome
Instructions: Anaphylaxis - Discharge instructions
Prescriptions:
No Action
ascorbic acid (vitamin C) [Vitamin C] 500 MG tablet
1,000 mg PO DAILY
acetaminophen [Tylenol Extra Strength] 500 MG tablet
1,000 mg PO PRN PRN (Reason: headaches)
lorazepam 0.5 MG tablet
0.5 mg PO HS PRN (Reason: panic attack-PTSD)
diphenhydramine HCl [Banophen] 25 MG capsule
1 - 2 tab PO HS PRN (Reason: allergies, sleep)
azelastine 1 SPRAY aerosol,spray
1 spray intranasal BID
albuterol sulfate [Ventolin HFA] 90 MCG/PUFF HFA aerosol inhaler
1 puff inhalation PRN PRN (Reason: allergies)
fluticasone propionate 1 SPRAY spray,suspension
1 spray intranasal BID
biotin-folic acid-B comp C 1 TAB tablet
1 tab PO DAILY
fexofenadine-pseudoephedrine [Alayna-D 24 Hour] 1 EACH tablet extended release 24 hr
1 ea PO DAILY
budesonide-formoterol [Symbicort] 1 PUFF HFA aerosol inhaler
1 puff inhalation BID PRN (Reason: allergies)
Bone Strong
2 tab PO DAILY
Turmeric
740 mg PO DAILY
hydrocodone-acetaminophen 1 TABLET tablet
1 - 2 tab PO Q4HPRN PRN (Reason: Mod-severe pain) 7 Days Qty: 30 0RF
clarithromycin [Biaxin XL] 500 MG tablet extended release 24 hr
500 mg PO BID 7 Days Qty: 14 0RF
oxycodone-acetaminophen 5 MG/325 MG tablet
1 tab PO Q6HPRN PRN (Reason: pain) Qty: 10 0RF
prednisone 50 MG tablet
50 mg PO DAILY Qty: 5 0RF
ondansetron 4 MG tablet,disintegrating
4 mg PO TIDPRN PRN (Reason: nausea/vomiting) Qty: 10 0RF
prednisone 20 mg tablet
40 mg PO DAILY Qty: 8 0RF
epinephrine [EpiPen] 0.3 mg/0.3 mL auto-injector
0.3 mg IM .STAT PRN (Reason: anaphylaxis) Qty: 1 6RF
prednisone 10 mg Tablet
See Rx Instructions .ROUTE .COMPLEX Qty: 30 0RF
Rx Instructions:
Take By Mouth:
40 mg daily x3 days, 30 mg daily x3 days,
20 mg daily x3 days, 10 mg daily x3 days.
Referrals:
Beny Donahue MD [Family Provider] - Call in 1-3 days for appt
Interventions
Interventions:
*Risk Screen - Suicide Last Done: 03/18/24 12:09
*General Assessment Last Done: 03/18/24 12:09
*Neglect/Abuse Screening Last Done: 03/18/24 12:09
ED- Cardiac Assessment Last Done: 03/18/24 12:09
ED- Pulmonary Assessment Last Done: 03/18/24 12:09
ED-Skin Assessment Last Done: 03/18/24 12:13
Discharge Date and Time
Print Language: IRANIAN
[2024-03-18] MEDS: ADRENALIN 0.299999999999999989 MG IM ×2 (13:57→16:53)
[2024-03-18] MEDS: BENADRYL 25 MG IV (16:49)
[2024-03-18] MEDS: SOLU-MEDROL PF 125 MG IV (16:50)
[2024-03-18] MEDS: PEPCID 20 MG IV (16:50)
[2024-03-18 16:56] LABS: % Basophils 0.6 % (0-2); % Eosinophils 0.6 % (0-6); % Immature Granulocytes 0.2 % (0-0.5); % Lymphocytes 51.8 % (20.5-51.1); % Monocytes 10.6 % (1.7-9.3); % Neutrophils 36.2 % (42.2-75.2); Absolute Lymphocytes 2.4 10^3/uL (1.2-3.4); Absolute Monocytes 0.5 10^3/uL (0.1-0.6); Absolute Neutrophils 1.7 10^3/uL (1.4-6.5); Hematocrit 37.8 % (37.0-47.0); Hemoglobin 12.7 g/dL (12.0-16.0); Mean Corp Hgb Conc. 33.6 g/dL (33.0-37.0); Mean Corpuscular Hgb 32.7 pg (27.0-31.0); Mean Corpuscular Volume 97.4 fL (81.0-99.0); Mean Platelet Volume 10.3 fL (7.4-10.4); Nucleated Red Blood Cells % 0 %; Platelet Count 191 10^3/uL (130-400); Red Blood Cell Count 3.88 10^6/uL (4.20-5.40); Red Cell Dist. Width 12.3 % (11.5-14.5); White Blood Cell Count 4.6 10^3/uL (4.8-10.8)
[2024-03-18] MEDS: NSS 500 IV (16:56)
[2024-03-18 17:10] LABS: Blood Urea Nitrogen 13 mg/dl (7-17); Calcium 9.2 mg/dl (8.4-10.2); Carbon Dioxide 26 mmol/L (22-30); Chloride 106 mmol/L (98-107); Estimated Creatinine Clearance 108 ml/min; Glucose 99 mg/dl (70-99); Potassium 3.5 mmol/L (3.5-5.1); Sodium 140 mmol/L (135-145); eGFR > 60.00
--- NOTE | 2024-03-18 19:21 | HPS.HSE ---
Family Physician
-
Family Physician: Beny Donahue
Chief Complaint
-
anaphylaxis
History of Present Illness
53-year-old female past medical history of mast cell activation syndrome, hereditary alpha tryptasemia, Raynaud's, asthma, tachycardia, anxiety presenting with anaphylactic reaction to cologne. 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 She states that her throat closed up and became swollen and she felt short of breath. She had chest tightness.
She came to the emergency room on 03/16 with similar reaction to cologne and was treated and discharged.
She currently feels somewhat better but still feels her throat is swollen. She denies any chest pain. She denies any abdominal pain. She denies any nausea vomiting or diarrhea. She denies any fevers or chills.
Patient found a tick on her left abdomen 2 weeks ago at which time she noticed a circular rash on her body. She removed the tick and eventually rash went away returned 8 days later. She denies any joint pains. She denies any worsening fatigue.
She denies any headache or neck pain.
She is currently undergoing treatment for mold allergies by an integrative medicine specialist with supplements. She has been having swelling and redness and pain of the right eye for the past several months. She was told by the integrative
specialist physician that she had cat scratch disease of the right eye. She was scratched by a cat several years ago.
Medical History
Past Medical History
Past Medical History: Reports Other (mast cell activation syndrome, hereditary alpha tryptasemia, Raynaud's, asthma, tachycardia, anxiety)
Past Surgical History: Reports None
Social History
Tobacco: Non-smoker
Alcohol: None
Drug: None
Family History
Family History: Not pertinent
Allergies / Home Medications
Allergies reflects when Allergies were last updated in [facility].
Home Medications with original date entered in [facility]
Allergy/Medication List:
Allergies
Allergy/AdvReac Type Severity Reaction Status Date / Time
adhesive tape Allergy swelling, Verified 03/18/24 11:54
itching,
redness
butalbital [From Fioricet] Allergy Rash Verified 03/18/24 11:54
caffeine [From Fioricet] Allergy Rash Verified 03/18/24 11:54
Cephalosporins Allergy Unknown Verified 03/18/24 11:54
clarithromycin [From Biaxin] Allergy upset Verified 03/18/24 11:54
stomach
penicillin V Allergy breathing Verified 03/18/24 11:54
difficulty;itching
sulfite [Sulfite] Allergy Unknown Verified 03/18/24 11:54
tetracycline [Tetracycline] Allergy Unknown Verified 03/18/24 11:54
GENERIC BENADRYL Allergy THROAT Uncoded 10/11/23 13:45
SWELLING
Topical Iodine Allergy reddness;swelling;skin Uncoded 10/11/23 13:45
irritation
Home Medications
G.I. Detox+ 2 cap PO BID 03/18/24
Histamine Digest 1 cap PO AC 03/18/24
Proflora 4r 1 cap PO BIDWMEAL 03/18/24
Saccharomyces boulardii 250 mg capsule 250 mg PO AC 03/18/24
acetaminophen 500 mg tablet 1,000 mg PO TIDPRN PRN mild pain 03/18/24
albuterol sulfate 90 mcg/actuation aerosol inhaler 1 puff inhalation R DAILYPRN PRN allergies 03/18/24
ascorbic acid (vitamin C) 1,000 mg tablet (Vitamin C) 1 g PO DAILY 03/18/24
azelastine 137 mcg (0.1 %) nasal spray 1 spray intranasal BID 03/18/24
budesonide 160 mcg-glycopyr 9 mcg-formot 4.8 mcg/actuation HFA inhaler (Breztri Aerosphere) 2 inh inhalation R BID 03/18/24
cholestyramine (with sugar) 4 gram powder for susp in a packet 2 g PO BID 03/18/24
cromolyn 100 mg/5 mL oral concentrate 100 mg PO AC 03/18/24
diphenhydramine HCl 25 mg capsule (Benadryl) 50 mg PO HSPRN PRN allergies 03/18/24
epinephrine 0.3 mg/0.3 mL injection, auto-injector (EpiPen) 0.3 mg IM ONCE 03/18/24
famotidine-Ca carb-mag hydrox 10 mg-800 mg-165 mg chewable tablet (Pepcid Complete) 1 tab PO DAILYPRN PRN allergies 03/18/24
fluticasone propionate 50 mcg/actuation nasal spray,suspension 1 spray intranasal HS 03/18/24
furosemide 40 mg tablet 60 mg PO DAILY 03/18/24
ipratropium bromide 42 mcg (0.06 %) nasal spray 1 spray intranasal BID 03/18/24
levocetirizine 5 mg tablet (Xyzal) 5 mg PO DAILYPRN PRN allergies 03/18/24
lidocaine-prilocaine 2.5 %-2.5 % topical cream 1 applic topical DAILYPRN PRN before Xolair injection 03/18/24
omalizumab 150 mg subcutaneous solution (Xolair) 150 mg SC Q2W 03/18/24
peg 400-propylene glycol 0.4 %-0.3 % eye drops (Systane Ultra) 1 drp RIGHT EYE DAILYPRN PRN dry eye 03/18/24
potassium chloride 20 mEq tablet,extended release 20 meq PO DAILY 03/18/24
quercetin 500 mg capsule 500 mg PO AC 03/18/24
Review of Systems
-
History Source: Patient
A 12 point ROS was completed and negative except as noted: Yes
Constitutional: Reports No Symptoms
EENT: Reports See HPI
Respiratory: Reports See HPI
Cardiac: Reports No Symptoms
Abdomen/GI: Reports No Symptoms
: Reports No Symptoms
Musculoskeletal: Reports No Symptoms
Skin: Reports No Symptoms
Neurological: Reports No Symptoms
Endocrine: Reports No Symptoms
Hematologic/Lymphatic: Reports No Symptoms
Psych: Reports No Symptoms
Physical Exam
Vital Signs
Vital Signs
Temp Pulse Resp BP Pulse Ox
97.9 F 80 18 131/73 99
03/18/24 11:54 03/18/24 18:00 03/18/24 18:00 03/18/24 18:00 03/18/24 18:17
Physical Exam
General: Well Developed, Well Nourished and No Apparent Distress
HEENT: NormoCephalic, Moist mucous membranes and Atraumatic
Respiratory: Clear
Cardiac: S1/S2 and Regular Rhythm; No Murmur or Rub
GI: Soft, Non Tender, Non Distended and Normal Bowel Sounds; No Organomegaly
Rectal: Deferred by Provider
Musculoskeletal: No Clubbing, No Cyanosis and No Edema
Skin: Other (left lower abdomen erythema ); No Rash
Neuro: Nonfocal/grossly intact
Laboratory Results
-
03/18/24 16:48
03/18/24 16:48
Data Reviewed
-
Lab Data: Labs Reviewed by me
Old Records: Reviewed
Impression/Plan
-
IMPRESSION:
PLAN:
# Anaphylaxis to cologne
# History of mast cell activation syndrome
-IV fluids, epinephrine, Benadryl, Pepcid, methylprednisolone given
-Continue methylprednisolone 20 twice daily, Pepcid
-Will need slow taper of methylprednisolone over 2 weeks as per patient
-Continue as needed Benadryl
-Continue DuoNebs
-Clear liquid diet
# Likely erythema migrans secondary to tick bite of left lower abdomen
-No cellulitis visible, needs Lyme's prophylaxis
-Patient with allergies to penicillins, cephalosporins, tetracyclines
-Discussed with ID and recommended holding off for now, and they can be consulted tomorrow
# Chronic right eye swelling/pain/erythema
-Suspect secondary to allergies
-Very subtly swollen perhaps but no erythema visible
-Doubt that she has cat scratch disease
-Continue eyedrops
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
-Continue cholestyramine
History of tachycardia
Chronic lower extremity edema
-Hold Lasix
Chronic leukopenia
-Appears stable
History of asthma
-On omalizumab
-Continue cromolyn
-Continue Xyzal
Hx of Mold Allergies
Hereditary alpha tryptasemia
Raynaud's disease
Anxiety
History of tachycardia
Full code
DVT prophylaxis�heparin
Clear liquid diet
[2024-03-18] MEDS: NSS 1000 IV (22:11)
[2024-03-18] MEDS: HEPARIN 5000 UNITS SC (22:12)
[2024-03-18] MEDS: QUESTRAN 2 GRAM PO (22:12)
[2024-03-18] MEDS: SYMBICORT 160/4.5 MCG INHALER INH (22:47)
[2024-03-19] MEDS: TYLENOL 1000 MG PO ×4 (02:09→20:22)
[2024-03-19 03:25] VITALS: BP 112/76
[2024-03-19] MEDS: SOLU-MEDROL PF 20 MG IV ×2 (03:58→16:32)
[2024-03-19 05:00] VITALS: BP 117/78
[2024-03-19 07:12] LABS: % Basophils 0.2 % (0-2); % Immature Granulocytes 0.4 % (0-0.5); % Lymphocytes 18.4 % (20.5-51.1); % Monocytes 2.3 % (1.7-9.3); % Neutrophils 78.7 % (42.2-75.2); Absolute Monocytes 0.1 10^3/uL (0.1-0.6); Absolute Neutrophils 4.1 10^3/uL (1.4-6.5); Hematocrit 39.4 % (37.0-47.0); Hemoglobin 13.5 g/dL (12.0-16.0); Mean Corp Hgb Conc. 34.3 g/dL (33.0-37.0); Mean Corpuscular Hgb 32.7 pg (27.0-31.0); Mean Corpuscular Volume 95.4 fL (81.0-99.0); Nucleated Red Blood Cells % 0 %; Platelet Count 216 10^3/uL (130-400); Red Blood Cell Count 4.13 10^6/uL (4.20-5.40); Red Cell Dist. Width 12.4 % (11.5-14.5); White Blood Cell Count 5.2 10^3/uL (4.8-10.8)
[2024-03-19 07:27] VITALS: BP 127/78
[2024-03-19 07:37] LABS: ALT (SGPT) 17 U/L (0-35); AST (SGOT) 23 U/L (14-36); Albumin 4.4 g/dl (3.5-5.0); Alkaline Phosphatase 119 U/L (38-126); Blood Urea Nitrogen 11 mg/dl (7-17); Calcium 9.6 mg/dl (8.4-10.2); Carbon Dioxide 22 mmol/L (22-30); Chloride 108 mmol/L (98-107); Estimated Creatinine Clearance 96 ml/min; Glucose 104 mg/dl (70-99); Potassium 4.3 mmol/L (3.5-5.1); Sodium 139 mmol/L (135-145); Total Bilirubin 0.6 mg/dl (0.2-1.3); Total Protein 7.3 g/dl (6.3-8.2); eGFR > 60.00
[2024-03-19] MEDS: SYMBICORT 160/4.5 MCG INHALER 2 PUFF INH ×2 (08:02→18:01)
[2024-03-19] MEDS: SPIRIVA RESPIMAT 2.5 MCG 2 PUFF INH ×2 (08:02→18:01)
[2024-03-19] MEDS: PEPCID 20 MG PO (08:10)
[2024-03-19] MEDS: HEPARIN 5000 UNITS SC ×2 (08:10→20:18)
[2024-03-19] MEDS: VITAMIN C 1000 MG PO (08:10)
[2024-03-19] MEDS: FLORASTOR 250 MG PO ×3 (08:12→16:33)
[2024-03-19] MEDS: GASTROCROM 100 MG PO ×3 (08:12→16:33)
[2024-03-19] MEDS: NSS 1000 IV ×2 (09:40→22:52)
[2024-03-19] MEDS: QUESTRAN 2 GRAM PO ×2 (10:00→22:01)
--- NOTE | 2024-03-19 11:32 | CON.ID ---
Consultation
-
Date/Time Consultation Requested: 03/18/20242012
Date/Time Consultation Performed: 03/19/2024 1116
Requesting Provider: Dr. Noble
Performing Provider: Dr. Bernal
Reason for Consultation: History of tick bite
Chief Complaint / Past History
History of Present Illness
Lorrie Estrada is a 53-year-old female being evaluated at the request of Dr. Noble in regards to possible tickborne infection. History is obtained from chart review, along with patient. The patient has a significant past medical history of
mast cell activation syndrome and has had multiple visits to the emergency room following exposure to cologne. 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
Following her return she found a tick embedded in the skin along the left abdominal waistband area. She placed some Vaseline on the area and ultimately was able to remove the tick with mouthparts intact. She reports that she given to the micro lab
where it was identified as a dog tick and not a deer tick. When the tick was removed she noted a approximately quarter sized area of erythema in the area which resolved. She notes that a week after the tick was removed she noted a 1 cm area of
erythema, which is now somewhat pruritic. She notes no history of fevers, although she states that her current temperature is approximately 1 degree higher than her baseline. She has not seen any other lesions on her body.
Past History
Additional Past Medical History:
Mast cell activation syndrome
Asthma
Anxiety
Hereditary alpha-tryptasemia
Additional Past Surgical History:
D&C x 2
Tubal ligation
Appendectomy
Bladder surgery
Allergy History:
adhesive tape Allergy (Verified 03/18/24 19:37)
swelling, itching, redness
butalbital [From Fioricet] Allergy (Verified 03/18/24 19:37)
Rash
caffeine [From Fioricet] Allergy (Verified 03/18/24 19:37)
Rash
Cephalosporins Allergy (Verified 03/18/24 19:37)
Unknown
clarithromycin [From Biaxin] Allergy (Verified 03/18/24 19:37)
upset stomach
penicillin V Allergy (Verified 03/18/24 19:37)
breathing difficulty;itching
sulfite [Sulfite] Allergy (Verified 03/18/24 19:37)
Unknown
tetracycline [Tetracycline] Allergy (Verified 03/18/24 19:37)
Unknown
GENERIC BENADRYL Allergy (Uncoded 03/18/24 19:37)
THROAT SWELLING
Topical Iodine Allergy (Uncoded 03/18/24 19:37)
reddness;swelling;skin irritation
Medications Reviewed: Yes
Current Antibiotics:
None
Social History
Tobacco: Non-Smoker
Alcohol: None
Drug: None
Employment: Employed
Family History
Family History: Not Pertinent
Review of Systems
Vital Signs
Temp Pulse Resp BP Pulse Ox
98.1 F 71 16 127/78 98
03/19/24 07:27 03/19/24 08:10 03/19/24 08:10 03/19/24 07:27 03/19/24 11:19
Physical Exam
Physical Exam
Constitutional: No Acute Distress, Comfortable and Non-toxic
Head: Normocephalic
Eyes: Pupils Equal, Pupils Round, No Conjunctival Hemorrhage and Sclera Anicteric
Oral: No Thrush and No Ulcers
Cardiovascular: Regular Rate and S1/S2; Negative S3/S4 or Murmur
Pulmonary: Clear; Negative Wheezes, Rales or Rhonchi
Gastrointestinal: Soft, Non Tender, Non Distended, Normal Bowel Sounds, No Rebound and No Guarding
Skin: Rash (1 cm area of erythema noted on the left abdominal belt line. No vesicles.)
Neurological: Awake and Alert
Psychological: Calm
Lab / Diagnostic Study Results
03/19/24:
03/19/24:
Abs Immat Gran (auto) 0.0 10^3/uL (0-0.05) 03/19/24:
Absolute Neuts (auto) 4.1 10^3/uL (1.4-6.5) 03/19/24:
Absolute Lymphs (auto) 1.0 10^3/uL (1.2-3.4) L 03/19/24:
Absolute Monos (auto) 0.1 10^3/uL (0.1-0.6) 03/19/24:
Absolute Basos (auto) 0.0 10^3/uL (0-0.2) 03/19/24:
Immature Gran % 0.4 % (0-0.5) 03/19/24:
Neutrophils % 78.7 % (42.2-75.2) H 03/19/24:
Lymphocytes % 18.4 % (20.5-51.1) L 03/19/24:
Monocytes % 2.3 % (1.7-9.3) 03/19/24:
Eosinophils % 0.0 % (0-6) 03/19/24:
Basophils % 0.2 % (0-2) 03/19/24:
Assessment / Plan
History of tick bite
- Prior rash noted but resolved.; Likely secondary to local irritation
- Tick identified as a dog tick.
Mast cell activation syndrome
Asthma
Anxiety
Hereditary alpha-tryptasemia
Recommendations:
At present, no antibiotics are indicated.
Tick has been identified as a dog tick, which does not carry the bacteria causing Lyme disease. Additionally, current area of erythema is not consistent with erythema migrans.
Observe off antibiotics. No further testing at present is necessary.
[2024-03-19 11:45] VITALS: BP 120/73
--- NOTE | 2024-03-19 12:08 | PTCARENOTE ---
Patient transferred to private room on due to sensitivity to smells from visitors. Report given to Mikala Whyte RN.
--- NOTE | 2024-03-19 14:57 | W.PN.HOSP.TC ---
Today's Communication/Plan
-
Continue steroids Benadryl Pepcid
Monitor for any further allergic reactio
Monitor airway and for stridor
-If stridor develops provide racemic epi and upgrade to IMU/ICU as she may require intubation
Assessment / Plan
Assessment / Plan
NAD, comfortable in bed
Scleral anicteric
No upper airway stridor, moist mucous membranes, no JVD CTA bilateral
Normal S1-S2, regular rate rhythm
Soft nontender nondistended bowel sounds active
Moves bilateral upper and lower extremity spontaneously
Alert awake oriented x 3
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
Continue IV fluids Benadryl Pepcid steroids.
Will need Methylpred slow taper on discharge
Continue DuoNebs
Continue clear liquid diet advance once throat swelling has come down a little bit more
There was initial concern for erythema migrans however was seen by ID tick identified as dog tick not a deer tick therefore no antibiotics indicated at this time
Chronic right eye swelling pain and erythema secondary to allergies continue eyedrops
Chronic diarrhea continue cholestyramine
History of asthma on only Luzu Mab, continue cromolyn and Xyzal
Anticipated Discharge: 24 - 48 hours
Subjective/Interval History
-
Date of Service: March 19, 2024
Seen and examined. No new complaint. No acute overnight events still feels like her throat is swollen. Tongue swelling has resolved though
Objective Data
-
Labs:
Laboratory Results
03/19/24
06:29
WBC 5.2
Hgb 13.5
Hct 39.4
Plt Count 216
Sodium 139
Potassium 4.3
Chloride 108 H
Carbon Dioxide 22
BUN 11
Creatinine 0.6
Glucose 104 H
Calcium 9.6
Total Bilirubin 0.6
AST 23
ALT 17
Alkaline Phosphatase 119
Vital Signs:
Vital Signs
Temp Pulse Resp BP Pulse Ox
98.1 F 102 16 120/73 97
03/19/24 11:45 03/19/24 11:45 03/19/24 11:45 03/19/24 11:45 03/19/24 11:45
I&O
03/18/24 03/19/24 03/20/24
06:59 06:59 06:59
Intake Total 720 / 720
Balance 720 / 720
[2024-03-19] MEDS: DUONEB 3 ML INH (17:56)
[2024-03-19 18:56] VITALS: BP 130/78
[2024-03-19] MEDS: NON-FORMULARY ITEM 1 UNIT NASAL (20:20)
[2024-03-19] MEDS: BENADRYL 25 MG IV (20:28)
[2024-03-19 23:00] VITALS: BP 127/76
[2024-03-20] MEDS: MAGNESIUM OXIDE 500 MG PO (00:20)
[2024-03-20 01:10] VITALS: BP 130/90
--- NOTE | 2024-03-20 02:08 | PTCARENOTE ---
~23:43 Pt reported 'I think my potassium is low. My legs are twitching and that's what happens when it is low. And, my headache is back. The pain is in my sinuses.' 03/19/2024 AM labs potassium level 4.3. Notified CRYSTAL Morgan. New orders
placed. Ordered medication cut into 4 small pieces. Pt able to swallow each piece individually. Pt stated 'I haven't had any headaches until I came up here [4th floor]. I think I figured out what's causing my headaches. People with mast cell
syndrome are sensitive to mold, etc and this is an old building. That heating and cooling system looks old and needs cleaning. It might be spreading something in the air I'm breathing causing the sinus pressure.' Notified CRYSATL Morgan.
Available bed on [address] [place] [address]. Pt agreed to transfer to [address] [place] [address]. PRN Zyrtec offered. Pt refused. Pt wants to see if 'the air in the newer building helps resolve the sinus pressure.' No SOB or difficulty breathing. Plan of care ongoing.
Report given to EMIR Alejandro on [address] [place] [address]. Pt transferred to [address] [place] [address] on stretcher with personal belongings.
[2024-03-20 03:21] VITALS: BP 116/74
[2024-03-20] MEDS: SOLU-MEDROL PF 20 MG IV (04:20)
[2024-03-20] MEDS: SYMBICORT 160/4.5 MCG INHALER 2 PUFF INH (07:37)
[2024-03-20] MEDS: VENTOLIN NEBULES 2.5 MG INH (07:40)
[2024-03-20 07:50] VITALS: BP 144/92
[2024-03-20] MEDS: VITAMIN C 1000 MG PO (08:41)
[2024-03-20] MEDS: BENADRYL 25 MG IV (08:41)
[2024-03-20] MEDS: PEPCID 20 MG PO (08:41)
[2024-03-20] MEDS: FLORASTOR 250 MG PO (08:41)
[2024-03-20] MEDS: GASTROCROM 100 MG PO (08:42)
[2024-03-20] MEDS: TYLENOL 1000 MG PO (08:42)
[2024-03-20] MEDS: HEPARIN 5000 UNITS SC (08:43)
[2024-03-20] MEDS: NON-FORMULARY ITEM 1 UNIT NASAL (08:43)
--- NOTE | 2024-03-20 08:55 | W.PN.HOSP.TC ---
Today's Communication/Plan
-
advance diet as tolerated
continue steroids, pepcid
continue prn benadryl
avoid strong smells/fragrances
avoid acute allergens
Assessment / Plan
Assessment / Plan
NAD, comfortable in bed
Scleral anicteric
No upper airway stridor, moist mucous membranes, no JVD
CTA bilateral
Normal S1-S2, regular rate rhythm
Soft nontender nondistended bowel sounds active
Moves bilateral upper and lower extremity spontaneously
No urticaria/hives
Alert awake oriented x 3
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
Continue IV fluids Benadryl Pepcid steroids.
Will need Methylpred slow taper on discharge
Continue DuoNebs
advance diet, if able to tolerate then will dc home
There was initial concern for erythema migrans however was seen by ID tick identified as dog tick not a deer tick therefore no antibiotics indicated at this time
Chronic right eye swelling pain and erythema secondary to allergies continue eyedrops
Chronic diarrhea continue cholestyramine
History of asthma on omluzamab, continue cromolyn and Xyzal
Anticipated Discharge: Within 24 hours
Subjective/Interval History
-
Date of Service: March 20, 2024
seen and examined
no new complaints
no acute overnight events
states needed her room changed to a new part of the building as she was having 'histamine headaches'
feeling better, still has some tightness but improved compared to yesterday and the day before
able to tolerate secretions and liquids
tomorrow she had a bridal shower and its her birthday today
tells me that she sent messaged to her integrative physician and mast cell physician
Objective Data
-
Vital Signs:
Vital Signs
Temp Pulse Resp BP Pulse Ox
97.7 F 82 20 144/92 96
03/20/24 07:50 03/20/24 07:53 03/20/24 07:53 03/20/24 07:50 03/20/24 07:53
I&O
03/19/24 03/20/24 03/21/24
06:59 06:59 06:59
Intake Total 720 / 720 880 / 880
Balance 720 / 720 880 / 880
[2024-03-20] MEDS: QUESTRAN 2 GRAM PO (11:23)
[2024-03-20 11:30] VITALS: BP 127/85
--- NOTE | 2024-03-20 11:52 | W.PN.ID1 ---
Date of Service
Date of Service: March 20, 2024
Today's Communication
Sign off.
Assessment / Plan
History of tick bite
- Prior rash noted but resolved; Likely secondary to local irritation
- Tick identified as a dog tick.
Mast cell activation syndrome
Asthma
Anxiety
Hereditary alpha-tryptasemia
Recommendations:
At present, no antibiotics are indicated.
Tick has been identified as a dog tick, which does not carry the bacteria causing Lyme disease. Additionally, current area of erythema is not consistent with erythema migrans.
Observe off antibiotics. No further testing at present is necessary.
Little more to offer from an Infectious Disease standpoint.
Will see again at your request
Chief Complaint
-: Other (Tick Exposure)
Subjective / Review of Systems
Review of Systems: No Fever
Vital Signs / Physical Exam
Vital Signs
Vital Signs
Temp Pulse Resp BP Pulse Ox
97.7 F 82 20 144/92 97
03/20/24 07:50 03/20/24 07:53 03/20/24 07:53 03/20/24 07:50 03/20/24 09:52
Physical Exam
Constitutional: No Acute Distress, Comfortable and Non-toxic
Eyes: Sclera Anicteric
Pulmonary: Non Labored
Gastrointestinal: Non Distended
Skin: Other (sub-cm redness at site of prior tick bite)
Neurological: Awake and Alert
Psychological: Calm
Objective Data
Lab Data
Lab Results
03/19/24 06:29
03/19/24 06:29
Estimated Creat Clear 96 ml/min 03/19/24 06:29
Total Bilirubin 0.6 mg/dl (0.2-1.3) 03/19/24 06:29
AST 23 U/L (14-36) 03/19/24 06:29
ALT 17 U/L (0-35) 03/19/24 06:29
Alkaline Phosphatase 119 U/L (38-126) 03/19/24 06:29
Most recent labs reviewed.
[2024-03-20] MEDS: FLORASTOR PO (12:02)
[2024-03-20] MEDS: GASTROCROM PO (12:02)
--- NOTE | 2024-03-20 12:13 | W.DCSUMMARY ---
Discharge Summary
Discharge Data
Date of Admission: 03/18/24
Date of Discharge: 03/20/24
-
Pending Results: No
Hospital Course
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 Prior to arriving in the ED required epinephrine IM x 1 and then was provided additional IM
epinephrine in the ER along with steroids Pepcid Benadryl. Improvement in symptomatology however without complete resolution. Still complained of chest tightness throat swelling/tongue swelling. Was admitted for airway monitoring/compromise which
did not occur thankfully. Was continued on steroids, Pepcid and as needed Benadryl.
However she continued to have histamine induced headaches along with throat closing sensation therefore room in building was changed with improvement in symptoms likely secondary to continued exposure of allergen.
Should also be noted, there was concern for Lyme disease/needing prophylaxis for which infectious disease evaluated. The timeline that this was not a deer tick and therefore did not require Lyme prophylaxis as deer ticks carry this bacteria that
cause Lyme disease.
Will need continued follow-up with outpatient Mastel activation syndrome physician along with family physician. Avoid triggers and allergens. Carry a unexpired EpiPen. On discharge will be sent home with slow tapering dose of steroids, Pepcid,
every 6 hours as needed Benadryl for allergy
Discharge Plan
-
Patient Disposition: Home (Routine Discharge)
Discharge Diagnosis/Procedures: Anaphylaxis
Mast cell activation syndrome
Hereditary alpha tryptasemia
Raynaud's
asthma
anxiety
Diet: As tolerated
Activity: As tolerated
Driving Restrictions: As prior to admission
Bathing Restrictions: None
Activity Restrictions/Additional Instructions:
Presented after reaction/anaphylaxis to cologne. Prior to arriving in the ED required epinephrine IM x 1 and then was provided additional IM epinephrine in the ER along with steroids Pepcid Benadryl. Improvement in symptomatology however without
complete resolution. Still complained of chest tightness throat swelling/tongue swelling. Was admitted for airway monitoring/compromise which did not occur thankfully. Was continued on steroids, Pepcid and as needed Benadryl.
However she continued to have histamine induced headaches along with throat closing sensation therefore room in building was changed with improvement in symptoms likely secondary to continued exposure of allergen.
Should also be noted, there was concern for Lyme disease/needing prophylaxis for which infectious disease evaluated. The timeline that this was not a deer tick and therefore did not require Lyme prophylaxis as deer ticks carry this bacteria that
cause Lyme disease.
Will need continued follow-up with outpatient Mastel activation syndrome physician along with family physician. Avoid triggers and allergens. Carry a unexpired EpiPen. On discharge will be sent home with slow tapering dose of steroids, Pepcid,
every 6 hours as needed Benadryl for allergy
Instructions: Anaphylaxis - Discharge instructions
Referrals:
Beny Donahue MD [Family Provider] -
Additional Discharge Medication Instructions: medrol dose suleman
Prescriptions:
New
methylprednisolone 4 mg Tablet
4 mg PO UD Qty: 21 0RF
Continued
furosemide 40 mg Tablet
60 mg PO DAILY
cromolyn 100 mg/5 mL Concentrate
100 mg PO AC
ascorbic acid (vitamin C) [Vitamin C] 1,000 mg Tablet
1 g PO DAILY
acetaminophen 500 mg Tablet
1,000 mg PO TIDPRN PRN (Reason: mild pain)
lidocaine-prilocaine 2.5-2.5 % Cream
1 applic TOPICAL DAILYPRN PRN (Reason: before Xolair injection)
diphenhydramine HCl [Benadryl] 25 mg Capsule
50 mg PO HSPRN PRN (Reason: allergies)
azelastine 137 mcg (0.1 %) [place],Non-Aerosol
1 spray INTRANASAL BID
epinephrine [EpiPen] 0.3 mg/0.3 mL Auto-Injector
0.3 mg IM ONCE
albuterol sulfate 90 mcg/actuation Hfa Aerosol Inhaler
1 puff INHALATION R DAILYPRN PRN (Reason: allergies)
ipratropium bromide 42 mcg (0.06 %) [place],Non-Aerosol
1 spray INTRANASAL BID
fluticasone propionate 50 mcg/actuation [place],Suspension
1 spray INTRANASAL HS
Systane Ultra 0.4-0.3 % Drops
1 drp RIGHT EYE DAILYPRN PRN (Reason: dry eye)
Xolair 150 mg Recon Soln
150 mg SC Q2W
cholestyramine (with sugar) 4 gram Powder In Packet
2 g PO BID
Saccharomyces boulardii 250 mg Capsule
250 mg PO AC
Pepcid Complete 10-800-165 mg Tablet,Chewable
1 tab PO DAILYPRN PRN (Reason: allergies)
levocetirizine [Xyzal] 5 mg Tablet
5 mg PO DAILYPRN PRN (Reason: allergies)
potassium chloride 20 mEq Tablet Extended Release
20 meq PO DAILY
Breztri Aerosphere 160-9-4.8 mcg/actuation Hfa Aerosol Inhaler
2 inh INHALATION R BID
quercetin 500 mg Capsule
500 mg PO AC
G.I. Detox+ capsule
2 cap PO BID
Histamine Digest capsule
1 cap PO AC
Proflora 4r capsule
1 cap PO BIDWMEAL
Discharge Orders:
Discharge Patient (As Directed); Ordered 03/20/24
Ordered By: Nolberto Parker
Discharge Date and Time
Discharge Date/Time: 03/20/24 14:40
Print Language: SALVADOREAN
--- NOTE | 2024-03-20 14:31 | CM ---
CM placed call to patient, initial assessment completed. Patient resides with her mother in a single story home, a few steps to enter. 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
offered risk management number, patient reports she has it. Patient denies DME, VN, or SNF history. Patient PCP Dr. Donahue, [facility] in [place]. Patient denies food, housing/utility, transportation insecurities. Patient reports her fiance
will provide transportation home. OBS status reviewed over phone. CM will continue to follow for all discharge planning needs.
Plan; home no needs.
== END 2024-03-20 14:40 | disposition home or self-care (01) ==
LOC: 2 NORTH 19:41
PROVIDERS: ADMITTING PHYSICIAN Hospitalist; ATTENDING PHYSICIAN Hospitalist; EMERGENCY PHYSICIAN Emergency Medicine; FAMILY PHYSICIAN Family Medicine; OTHER PHYSICIAN Internal Medicine Infectious Disease
DX: T78.2XXA Anaphylactic shock, unspecified, initial encounter (principal); R06.02 Shortness of breath; R07.89 Other chest pain; D89.40 Mast cell activation, unspecified; J02.9 Acute pharyngitis, unspecified; D89.44 Hereditary alpha tryptasemia; I73.00 Raynaud's syndrome without gangrene; H57.89 Other specified disorders of eye and adnexa; K52.9 Noninfective gastroenteritis and colitis, unspecified; R60.0 Localized edema; J45.909 Unspecified asthma, uncomplicated; F41.9 Anxiety disorder, unspecified; Z79.51 Long term (current) use of inhaled steroids; Z79.52 Long term (current) use of systemic steroids; Z82.49 Family history of ischemic heart disease and other diseases of the circulatory system; Z88.1 Allergy status to other antibiotic agents; Z88.0 Allergy status to penicillin; Z88.8 Allergy status to other drugs, medicaments and biological substances; Z91.018 Allergy to other foods; Z91.048 Other nonmedicinal substance allergy status; R51.9 Headache, unspecified
CPT/HCPCS: 80048; 80053; 85025; 94640; 96361; 96372; 96374; 96375; 99285; G0378

== ENCOUNTER → 2024-05-12 09:00 | Outpatient (REF) | payer BC, SELFPAY ==
[2024-05-12 09:20] LABS: % Basophils 0.6 % (0-2); % Eosinophils 0.8 % (0-6); % Lymphocytes 48.2 % (20.5-51.1); % Monocytes 10.8 % (1.7-9.3); % Neutrophils 39.6 % (42.2-75.2); Absolute Lymphocytes 2.3 10^3/uL (1.2-3.4); Absolute Monocytes 0.5 10^3/uL (0.1-0.6); Absolute Neutrophils 1.9 10^3/uL (1.4-6.5); Hematocrit 38.1 % (37.0-47.0); Hemoglobin 12.9 g/dL (12.0-16.0); Mean Corp Hgb Conc. 33.9 g/dL (33.0-37.0); Mean Corpuscular Hgb 33.2 pg (27.0-31.0); Mean Corpuscular Volume 97.9 fL (81.0-99.0); Mean Platelet Volume 10.2 fL (7.4-10.4); Nucleated Red Blood Cells % 0 %; Platelet Count 192 10^3/uL (130-400); Red Blood Cell Count 3.89 10^6/uL (4.20-5.40); Red Cell Dist. Width 12.9 % (11.5-14.5); White Blood Cell Count 4.7 10^3/uL (4.8-10.8)
[2024-05-12 10:15] LABS: ALT (SGPT) 38 U/L (0-35); AST (SGOT) 35 U/L (14-36); Albumin 4.6 g/dl (3.5-5.0); Alkaline Phosphatase 113 U/L (38-126); Blood Urea Nitrogen 13 mg/dl (7-17); Calcium 9.4 mg/dl (8.4-10.2); Carbon Dioxide 30 mmol/L (22-30); Chloride 102 mmol/L (98-107); Glucose 93 mg/dl (70-99); HDL Cholesterol 85 mg/dl; LDL Cholesterol, Calculated 76 mg/dl; Potassium 4.1 mmol/L (3.5-5.1); Sodium 141 mmol/L (135-145); Total Bilirubin 0.5 mg/dl (0.2-1.3); Total Cholesterol 179 mg/dl (50-199); Total Protein 7.3 g/dl (6.3-8.2); Triglyceride 93 mg/dl (10-149); Very Low Density Lipoprotein 18 mg/dl (0-30); eGFR > 60.00
[2024-05-12 10:32] LABS: TSH 2.07 uIU/ml (0.47-4.68)
[2024-05-12 10:34] LABS: Glycohemoglobin (HgbA1c) 5.6 % (4.0-5.6)
== END ==
LOC: REG 09:00
PROVIDERS: ATTENDING PHYSICIAN Family Medicine
DX: Z00.00 Encounter for general adult medical examination without abnormal findings (principal); I10 Essential (primary) hypertension; E78.2 Mixed hyperlipidemia
CPT/HCPCS: 36415; 80053; 80061; 83036; 84443; 85025

== ENCOUNTER 2024-05-17 12:07 | Emergency (ER) | payer BC, SELFPAY ==
[2024-05-17 12:08] VITALS: BP 155/101
[2024-05-17 12:25] VITALS: BP 133/88
--- NOTE | 2024-05-17 12:38 | ED.GENMED ---
History of Present Illness
General
Chief Complaint: Allergic Reaction
Time Seen by Provider: 05/17/24 12:37
History of Present Illness
History of Present Illness:
HPI: The patient has history of mast cell activation syndrome. She felt that she was having a reaction to cologne. She did give herself an EpiPen. She does have a treatment plan that she brought with her. She has a change in her voice and has a
sensation of some tongue swelling
EXAM:
GENERAL: Well appearing in no distress
HEENT: Moist oral mucosa, there is no posterior oropharyngeal edema, minimal if any tongue swelling
CARDIOVASCULAR: No murmurs, normal heart rate, regular rhythm, No chest wall tenderness
PULMONARY: No respiratory distress, breath sounds are clear and equal
ABDOMEN: Soft with no peritoneal signs, no tenderness
NEUROLOGIC: Excellent strength all extremities, no coordination deficits
PSYCHIATRIC: Appropriate mental status, normal insight and judgement
EXTREMITIES: Nontender, no edema, moves all extremities equally
SKIN: No rash, no lesions
TIME OF INITIAL ENCOUNTER: 12:30 PM
NUMBER AND COMPLEXITY OF PROBLEMS ADDRESSED AT THE ENCOUNTER
� Chronic conditions affecting care: Mast cell activation
� Acute Exacerbation and/or Progression of Chronic Illness: This is an acute on chronic problem
� Differential Diagnosis includes: Mast cell activation syndrome, nonspecific allergic reaction
AMOUNT AND/OR COMPLEXITY OF DATA TO BE REVIEWED AND ANALYZED
� I performed an independent evaluation of and my interpretation is:
EKG:
CT:
X-rays:
Laboratory Studies: CBC and chemistries are unremarkable with exception of a low potassium of 3.2.
Other:
� Review of other/old records: The patient was admitted with a mast cell activation syndrome exacerbation nearly 2 months ago and stayed 2 nights in the hospital
� Clinical information was obtained by an independent historian: I spoke to the at bedside
� Prescriptions/Medications Considered but not given:
� Further testing considered but not performed:
RISK OF COMPLICATIONS AND/OR MORBIDITY OR MORTALITY OF PATIENT MANAGEMENT
� Social determinants of health affecting care: Lives at home
� Discussion with other providers:
� Escalation of care including admission/observation vs risk of discharge considered: The patient's symptoms are described is not as severe as when she required admission to the hospital 2 months ago. She was given IV meds here
and overall continues to improve. There is no evidence of posterior oropharyngeal airway compromise. On reassessment at 2 PM, the patient feels significant proved. Will replace potassium orally. She generally responds to a prolonged steroid
course of about 10 days.
Past History
Past History
ED Past Medical History: Other (migraines mast cell activation)
ED Past Surgical History: Appendectomy and Gynecological; Negative
Social History
Tobacco: Non-smoker
Alcohol: None
Drug: None
Personal:
Living: with family
Employment: Employed
Family History
Family History: Hypertension; Negative Diabetes
Phy Exam
Physical Exam
Physical Exam:
See HPI
Course
Orders/Labs/Results
Orders:
Orders
05/17/24 12:39
Albuterol Nebs [Ventolin Nebules] 2.5 mg INH R NOW STA
Diphenhydramine [Benadryl] 25 mg IV NOW STA
MethylPREDNISolone PF [Solu-Medrol Pf] 125 mg IV NOW STA
05/17/24 13:22
Basic Metabolic Panel Urgent
Complete Blood Count/With Diff Urgent
05/17/24 13:55
Potassium Chloride Powder [Klor-Con] 40 meq PO NOW STA
Abnormal Lab Results
05/17/24
13:22
RBC 3.84 L 10^6/uL
(4.20-5.40)
MCV 99.5 H fL
(81.0-99.0)
MCH 33.9 H pg
(27.0-31.0)
MPV 11.0 H fL
(7.4-10.4)
Neutrophils % 41.0 L %
(42.2-75.2)
Potassium 3.2 L mmol/L
(3.5-5.1)
Carbon Dioxide 33 H mmol/L
(22-30)
Glucose 196 H mg/dl
(70-99)
05/17/24 13:22
05/17/24 13:22
Vital Signs
Initial and Last Documented VS:
Initial Vital Signs
Temp Pulse Resp BP Pulse Ox
98.2 F 90 16 155/101 98
05/17/24 12:08 05/17/24 12:08 05/17/24 12:08 05/17/24 12:08 05/17/24 12:08
Last Documented Vital Signs
Temp Pulse Resp BP Pulse Ox
98.2 F 84 20 112/71 97
05/17/24 12:08 05/17/24 13:30 05/17/24 13:30 05/17/24 13:14 05/17/24 13:31
*Critical Care Note
Total Time (30-74mins, 75-104mins- exclusive of procedures): Not Applicable
ED Attending Note
-
Portions of this chart may have been created with voice recognition software.� Occasional wrong word or��sound alike� substitutions may have occurred due to the inherent limitations of voice recognition software.
Discharge Plan
Departure
Prescriptions:
No Action
furosemide 40 mg Tablet
60 mg PO DAILY
cromolyn 100 mg/5 mL Concentrate
100 mg PO AC
ascorbic acid (vitamin C) [Vitamin C] 1,000 mg Tablet
1 g PO DAILY
acetaminophen 500 mg Tablet
1,000 mg PO TIDPRN PRN (Reason: mild pain)
lidocaine-prilocaine 2.5-2.5 % Cream
1 applic TOPICAL DAILYPRN PRN (Reason: before Xolair injection)
diphenhydramine HCl [Benadryl] 25 mg Capsule
50 mg PO HSPRN PRN (Reason: allergies)
azelastine 137 mcg (0.1 %) [place],Non-Aerosol
1 spray INTRANASAL BID
epinephrine [EpiPen] 0.3 mg/0.3 mL Auto-Injector
0.3 mg IM ONCE
albuterol sulfate 90 mcg/actuation Hfa Aerosol Inhaler
1 puff INHALATION R DAILYPRN PRN (Reason: allergies)
ipratropium bromide 42 mcg (0.06 %) [place],Non-Aerosol
1 spray INTRANASAL BID
fluticasone propionate 50 mcg/actuation [place],Suspension
1 spray INTRANASAL HS
Systane Ultra 0.4-0.3 % Drops
1 drp RIGHT EYE DAILYPRN PRN (Reason: dry eye)
Xolair 150 mg Recon Soln
150 mg SC Q2W
cholestyramine (with sugar) 4 gram Powder In Packet
2 g PO BID
Saccharomyces boulardii 250 mg Capsule
250 mg PO AC
Pepcid Complete 10-800-165 mg Tablet,Chewable
1 tab PO DAILYPRN PRN (Reason: allergies)
levocetirizine [Xyzal] 5 mg Tablet
5 mg PO DAILYPRN PRN (Reason: allergies)
potassium chloride 20 mEq Tablet Extended Release
20 meq PO DAILY
Breztri Aerosphere 160-9-4.8 mcg/actuation Hfa Aerosol Inhaler
2 inh INHALATION R BID
quercetin 500 mg Capsule
500 mg PO AC
G.I. Detox+ capsule
2 cap PO BID
Histamine Digest capsule
1 cap PO AC
Proflora 4r capsule
1 cap PO BIDWMEAL
methylprednisolone 4 mg Tablet
4 mg PO UD Qty: 21 0RF
Referrals:
Beny Donahue MD [Family Provider] -
Interventions
Interventions:
*Risk Screen - Suicide Last Done: 05/17/24 13:31
*General Assessment Last Done: 05/17/24 13:31
*Neglect/Abuse Screening Last Done: 05/17/24 13:31
ED- Fall Risk Assessment Last Done: 05/17/24 13:31
*ED COVID-19 Vaccine History Last Done: 05/17/24 13:31
ED- Cardiac Assessment Last Done: 05/17/24 13:31
ED- Pulmonary Assessment Last Done: 05/17/24 13:31
ED-Skin Assessment Last Done: 05/17/24 13:31
Discharge Date and Time
Print Language: [place]
[2024-05-17 13:14] VITALS: BP 112/71
[2024-05-17] MEDS: VENTOLIN NEBULES 2.5 MG INH (13:24)
[2024-05-17] MEDS: SOLU-MEDROL PF 125 MG IV (13:24)
[2024-05-17] MEDS: BENADRYL 25 MG IV (13:24)
[2024-05-17 13:31] VITALS: BMI 25.8
[2024-05-17 13:32] LABS: % Basophils 0.4 % (0-2); % Eosinophils 0.7 % (0-6); % Immature Granulocytes 0.1 % (0-0.5); % Lymphocytes 49.3 % (20.5-51.1); % Monocytes 8.5 % (1.7-9.3); Absolute Eosinophils 0.1 10^3/uL (0-0.7); Absolute Lymphocytes 3.4 10^3/uL (1.2-3.4); Absolute Monocytes 0.6 10^3/uL (0.1-0.6); Absolute Neutrophils 2.8 10^3/uL (1.4-6.5); Hematocrit 38.2 % (37.0-47.0); Mean Corpuscular Hgb 33.9 pg (27.0-31.0); Mean Corpuscular Volume 99.5 fL (81.0-99.0); Nucleated Red Blood Cells % 0 %; Platelet Count 218 10^3/uL (130-400); Red Blood Cell Count 3.84 10^6/uL (4.20-5.40); Red Cell Dist. Width 13.1 % (11.5-14.5); White Blood Cell Count 6.8 10^3/uL (4.8-10.8)
[2024-05-17 13:43] LABS: Blood Urea Nitrogen 13 mg/dl (7-17); Calcium 9.4 mg/dl (8.4-10.2); Carbon Dioxide 33 mmol/L (22-30); Chloride 102 mmol/L (98-107); Estimated Creatinine Clearance 91 ml/min; Glucose 196 mg/dl (70-99); Potassium 3.2 mmol/L (3.5-5.1); Sodium 145 mmol/L (135-145); eGFR > 60.00
[2024-05-17] MEDS: KLOR-CON 40 MEQ PO (14:37)
== END 2024-05-17 14:45 | disposition home or self-care (01) ==
LOC: EMR 12:07
PROVIDERS: EMERGENCY PHYSICIAN Emergency Medicine; FAMILY PHYSICIAN Family Medicine
DX: D89.40 Mast cell activation, unspecified (principal)
CPT/HCPCS: 99284; 96374; 96375; 94640; 80048; 85025

== ENCOUNTER → 2024-05-27 15:56 | Outpatient (REF) | payer BC, SELFPAY | LOC: RCS 15:56 | PROVIDERS: ATTENDING PHYSICIAN Internal Medicine Cardiovascular Disease; FAMILY PHYSICIAN Family Medicine | DX: I36.1 Nonrheumatic tricuspid (valve) insufficiency (principal) | CPT/HCPCS: 93306 ==

== ENCOUNTER → 2024-06-17 15:12 | Outpatient (REF) | payer BC, SELFPAY | LOC: WDC 15:12 | PROVIDERS: ATTENDING PHYSICIAN Family Medicine | DX: Z12.31 Encounter for screening mammogram for malignant neoplasm of breast (principal) | CPT/HCPCS: 77063; 77067 ==

== ENCOUNTER 2024-07-30 16:29 | Emergency (ER) | payer OTHER, SELFPAY ==
[2024-07-30 16:30] VITALS: BP 156/102
[2024-07-30 16:43] VITALS: BP 128/82
--- NOTE | 2024-07-30 16:53 | ED.GENMED ---
History of Present Illness
General
Chief Complaint: Allergic Reaction
Source: patient
Exam Limitations: none
Time Seen by Provider: 07/30/24 16:36
Nursing documentation reviewed up to this point in time: agreed with
History of Present Illness
History of Present Illness:
54-year-old female presents emergency department complaining of allergic reaction. She has mast cell activation syndrome. She was exposed to a fragrant chemical in the bathroom. She took her EpiPen 10 minutes ago, and feels her throat and chest
are tight.
Past History
Past History
ED Past Medical History: Other (migraines mast cell activation)
ED Past Surgical History: Appendectomy and Gynecological; Negative
Social History
Tobacco: Non-smoker
Alcohol: None
Drug: None
Personal:
Living: with family
Employment: Employed
Family History
Family History: Hypertension; Negative Diabetes
Review of Systems
Review of Systems
Allergies reviewed?: Yes
All Other Systems: Not applicable
Constitutional: Reports no symptoms
EENT: Reports mouth swelling
Respiratory: Reports trouble breathing
Cardiac: Reports no symptoms
ABD/GI: Reports no symptoms
: Reports no symptoms
Musculoskeletal: Reports no symptoms
Skin: Reports no symptoms
Neurological: Reports no symptoms
Endocrine: Reports no symptoms
Hematologic/Lymphatic: Reports no symptoms
Psychiatric: Reports no symptoms
Phy Exam
Physical Exam
Physical Exam:
Physical Exam
General: no apparent distress, not acutely ill
Neck: supple. no meningeal signs. normal posterior pharynx
Heart: s1/s2 regular rate and rhythm, no murmur. equal radial
pulses.
HEENT: Pupils equal round reactive to light, EOMI
Lungs: no acute respiratory distress. clear bilaterally
Abdomen: normal bowel sounds. not tender. no CVAT
Neuro: alert and oriented. no focal neurological deficits cranial nerves II through XII intact
Skin: no rash
Psychiatric: well kept. interactive and cooperative
Extremities: no edema. no calf tenderness. negative homans. good distal pulses
Course
Orders/Labs/Results
Orders:
Orders
07/30/24 16:51
IV Insert/Care/Rem.- Treatment PRN
Dexamethasone Sod Phosphate [Decadron] 10 mg IV NOW STA
Diphenhydramine [Benadryl] 25 mg IV NOW STA
Ipratropium/Albuterol Sulfate [Duoneb] 3 ml INH R NOW STA
07/30/24 16:59
Complete Blood Count/With Diff Urgent
Comprehensive Metabolic Panel Urgent
Magnesium Urgent
07/30/24 18:07
Potassium Chloride 10% Elixir [KCl Elixir] 40 meq PO NOW STA
Abnormal Lab Results
07/30/24
16:59
RBC 3.68 L 10^6/uL
(4.20-5.40)
Hct 36.2 L %
(37.0-47.0)
MCH 34.2 H pg
(27.0-31.0)
Absolute Lymphs (auto) 4.9 H 10^3/uL
(1.2-3.4)
Absolute Monos (auto) 0.9 H 10^3/uL
(0.1-0.6)
Neutrophils % 26.5 L %
(42.2-75.2)
Lymphocytes % 61.1 H %
(20.5-51.1)
Monocytes % 10.9 H %
(1.7-9.3)
Potassium 3.0 L mmol/L
(3.5-5.1)
BUN 19 H mg/dl
(7-17)
Glucose 113 H mg/dl
(70-99)
07/30/24 16:59
07/30/24 16:59
Vital Signs
Initial and Last Documented VS:
Initial Vital Signs
Temp Pulse Resp BP Pulse Ox
98.8 F 98 18 156/102 99
07/30/24 16:30 07/30/24 16:30 07/30/24 16:30 07/30/24 16:30 07/30/24 16:30
Last Documented Vital Signs
Temp Pulse Resp BP Pulse Ox
98.8 F 85 14 115/62 95
07/30/24 16:30 07/30/24 17:45 07/30/24 17:45 07/30/24 17:29 07/30/24 17:45
MDM/Problems Addressed
Differential Diagnosis Includes:
Anaphylaxis, allergic reaction, hypokalemia
MDM/Problems Addressed:
54-year-old female with allergic reaction secondary to mast cell syndrome.
Chronic conditions affecting care: Other (Mast cell activation syndrome)
Acute Exacerbation and/or Progression of Chronic Illness: Other (Mast cell activation syndrome)
*Pulse Oximetry
Patient hypoxic: no
*Critical Care Note
Total Time (30-74mins, 75-104mins- exclusive of procedures): Not Applicable
Patient Management
Social determinants of health affecting care: Living situation
Escalation/DeEscalation of care consider admission/obs:
Admit not indicated
ED Attending Note
-
Portions of this chart may have been created with voice recognition software.� Occasional wrong word or��sound alike� substitutions may have occurred due to the inherent limitations of voice recognition software.
Discharge Plan
Departure
Patient Disposition: Home (Routine Discharge)
Date of Disposition: 07/30/24
Time of Disposition: 18:43
Patient with high blood pressure during this ER visit?: No
Condition: Good
Discharge Problem:
Allergic reaction, Acute hypokalemia
Instructions: Hypokalemia, Allergic Reaction ED
Prescriptions:
No Action
furosemide 40 mg Tablet
60 mg PO DAILY
cromolyn 100 mg/5 mL Concentrate
100 mg PO AC
ascorbic acid (vitamin C) [Vitamin C] 1,000 mg Tablet
1 g PO DAILY
acetaminophen 500 mg Tablet
1,000 mg PO TIDPRN PRN (Reason: mild pain)
lidocaine-prilocaine 2.5-2.5 % Cream
1 applic TOPICAL DAILYPRN PRN (Reason: before Xolair injection)
diphenhydramine HCl [Benadryl] 25 mg Capsule
50 mg PO HSPRN PRN (Reason: allergies)
azelastine 137 mcg (0.1 %) [place],Non-Aerosol
1 spray INTRANASAL BID
epinephrine [EpiPen] 0.3 mg/0.3 mL Auto-Injector
0.3 mg IM ONCE
albuterol sulfate 90 mcg/actuation Hfa Aerosol Inhaler
1 puff INHALATION R DAILYPRN PRN (Reason: allergies)
ipratropium bromide 42 mcg (0.06 %) [place],Non-Aerosol
1 spray INTRANASAL BID
fluticasone propionate 50 mcg/actuation [place]ner,Suspension
1 spray INTRANASAL HS
Systane Ultra 0.4-0.3 % Drops
1 drp RIGHT EYE DAILYPRN PRN (Reason: dry eye)
Xolair 150 mg Recon Soln
150 mg SC Q2W
cholestyramine (with sugar) 4 gram Powder In Packet
2 g PO BID
Saccharomyces boulardii 250 mg Capsule
250 mg PO AC
Pepcid Complete 10-800-165 mg Tablet,Chewable
1 tab PO DAILYPRN PRN (Reason: allergies)
levocetirizine [Xyzal] 5 mg Tablet
5 mg PO DAILYPRN PRN (Reason: allergies)
potassium chloride 20 mEq Tablet Extended Release
20 meq PO DAILY
Breztri Aerosphere 160-9-4.8 mcg/actuation Hfa Aerosol Inhaler
2 inh INHALATION R BID
quercetin 500 mg Capsule
500 mg PO AC
G.I. Detox+ capsule
2 cap PO BID
Histamine Digest capsule
1 cap PO AC
Proflora 4r capsule
1 cap PO BIDWMEAL
methylprednisolone 4 mg Tablet
4 mg PO UD Qty: 21 0RF
prednisone 10 mg tablet
10 mg PO DIRECTED Qty: 30 0RF
Rx Instructions:
4 tabs x 3 days, 3 tabs x 3 days, 2 tabs x 3 days, then 1 tab x 3 days
Interventions
Interventions:
*Risk Screen - Suicide Last Done: 07/30/24 16:30
*General Assessment Last Done: 07/30/24 16:30
*Neglect/Abuse Screening Last Done: 07/30/24 16:30
*ED COVID-19 Vaccine History Last Done: 07/30/24 16:30
ED- Cardiac Assessment Last Done: 07/30/24 16:50
ED- Pulmonary Assessment Last Done: 07/30/24 16:50
ED-Skin Assessment Last Done: 07/30/24 16:50
Discharge Date and Time
Print Language: PALAUAN
[2024-07-30] MEDS: BENADRYL 25 MG IV (17:00)
[2024-07-30] MEDS: DECADRON 10 MG IV (17:00)
[2024-07-30] MEDS: DUONEB 3 ML INH (17:03)
[2024-07-30 17:27] LABS: ALT (SGPT) 21 U/L (0-35); AST (SGOT) 26 U/L (14-36); Albumin 4.7 g/dl (3.5-5.0); Alkaline Phosphatase 105 U/L (38-126); Blood Urea Nitrogen 19 mg/dl (7-17); Calcium 9.1 mg/dl (8.4-10.2); Carbon Dioxide 30 mmol/L (22-30); Chloride 99 mmol/L (98-107); Glucose 113 mg/dl (70-99); Sodium 142 mmol/L (135-145); Total Bilirubin 0.2 mg/dl (0.2-1.3); Total Protein 7.5 g/dl (6.3-8.2); eGFR > 60.00
[2024-07-30 17:29] VITALS: BP 115/62
[2024-07-30 18:00] VITALS: BP 103/64
[2024-07-30 18:47] LABS: % Basophils 0.5 % (0-2); % Eosinophils 0.9 % (0-6); % Immature Granulocytes 0.1 % (0-0.5); % Lymphocytes 61.1 % (20.5-51.1); % Monocytes 10.9 % (1.7-9.3); % Neutrophils 26.5 % (42.2-75.2); Absolute Eosinophils 0.1 10^3/uL (0-0.7); Absolute Lymphocytes 4.9 10^3/uL (1.2-3.4); Absolute Monocytes 0.9 10^3/uL (0.1-0.6); Absolute Neutrophils 2.1 10^3/uL (1.4-6.5); Hematocrit 36.2 % (37.0-47.0); Hemoglobin 12.6 g/dL (12.0-16.0); Mean Corp Hgb Conc. 34.8 g/dL (33.0-37.0); Mean Corpuscular Hgb 34.2 pg (27.0-31.0); Mean Corpuscular Volume 98.4 fL (81.0-99.0); Mean Platelet Volume 9.9 fL (7.4-10.4); Nucleated Red Blood Cells % 0 %; Platelet Count 226 10^3/uL (130-400); Red Blood Cell Count 3.68 10^6/uL (4.20-5.40)
[2024-07-30] MEDS: KCL ELIXIR 40 MEQ PO (18:49)
[2024-07-30 18:55] VITALS: BP 125/81
== END 2024-07-30 18:59 | disposition home or self-care (01) ==
LOC: EMR 16:29
PROVIDERS: EMERGENCY PHYSICIAN Emergency Medicine; FAMILY PHYSICIAN Family Medicine
DX: T78.40XA Allergy, unspecified, initial encounter (principal); E87.6 Hypokalemia; X58.XXXA Exposure to other specified factors, initial encounter; D89.40 Mast cell activation, unspecified; Z82.49 Family history of ischemic heart disease and other diseases of the circulatory system; Z90.49 Acquired absence of other specified parts of digestive tract
CPT/HCPCS: 99283; 96374; 96375; 80053; 83735; 85025

== ENCOUNTER → 2024-08-22 12:52 | Outpatient (REF) | payer BC, SELFPAY | LOC: MRI 3T 12:52 | PROVIDERS: ATTENDING PHYSICIAN Orthopaedic Surgery; FAMILY PHYSICIAN Family Medicine | DX: M25.512 Pain in left shoulder (principal) | CPT/HCPCS: 73221 ==

== ENCOUNTER 2024-10-19 16:37 | Emergency (ER) | payer SELFPAY ==
[2024-10-19 16:38] VITALS: BP 140/105
--- NOTE | 2024-10-19 16:42 | ED.GENMED ---
History of Present Illness
<LUZ Anglin Last Filed: 10/19/24 19:44>
General
Chief Complaint: Allergic Reaction
Source: patient
Exam Limitations: none
Time Seen by Provider: 10/19/24 16:42
Nursing documentation reviewed up to this point in time: agreed with
History of Present Illness
History of Present Illness:
This is a 54-year-old female with past medical history of mast cell activation syndrome, migraines, IBS, hereditary alpha tryptasemia presents emergency department today with concerns of throat swelling, hoarse voice, trouble swallowing. Patient
reports that she is currently starting to have a allergic reaction. She reports that her symptoms are triggered by cologne or perfumes. 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
She smelled this and this caused her to start to have symptoms minutes after exposure. She denies any chest pain denies any chest tightness, any trouble breathing. She denies any rashes. She reports that she has been to emergency department
multiple times for this problem. She was about to take her EpiPen but instead decided to report to the emergency department right away. She denies abdominal pain, lip or tongue swelling, fevers or chills.
Past History
<LUZ Anglin Last Filed: 10/19/24 19:44>
Past History
ED Past Medical History: Other (migraines mast cell activation)
ED Past Surgical History: Appendectomy and Gynecological; Negative
Social History
Tobacco: Non-smoker
Alcohol: None
Drug: None
Personal:
Living: with family
Employment: Employed
Family History
Family History: Hypertension; Negative Diabetes
Review of Systems
<LUZ Anglin Filed: 10/19/24 19:44>
Review of Systems
All Other Systems: ROS reviewed and negative except as documented in HPI and ROS
Phy Exam
<Sri Martinez PA-C - Last Filed: 10/19/24 19:44>
Physical Exam
Physical Exam:
General: Patient is well appearing and in no acute distress; non-toxic
Skin: Warm and dry, no rashes or lesions
Head: Normocephalic, atraumatic
Eyes: Sclera non-icteric. EOMs intact.
Throat: Uvula midline no uvular edema no pharyngeal erythema
Mouth: No tongue or lip swelling, no intraoral lesions
Cardiac: Regular rate and rhythm, no murmurs
Peripheral Vascular: No lower extremity swelling.
Pulm: Normal respiratory effort, no wheezes, rales, or rhonchi
Neuro: CN II-XII intact, no focal neurologic deficits.
Psychiatric: Appropriate mood and affect.
Course
<Sri Martinez PA-C - Last Filed: 10/19/24 19:44>
Orders/Labs/Results
Orders:
Orders
10/19/24 16:55
IV Insert/Care/Rem.- Treatment PRN
10/19/24 16:59
EPINEPHrine PF [Adrenalin] 0.3 mg IM NOW STA
10/19/24 17:02
Diphenhydramine [Benadryl] 25 mg IV NOW STA
MethylPREDNISolone PF [Solu-Medrol Pf] 125 mg IV NOW STA
10/19/24 17:22
Complete Blood Count/With Diff Urgent
Comprehensive Metabolic Panel Urgent
10/19/24 18:10
0.9% Sodium Chloride 500 ml [Nss] 500 ml IV BOLUS
Abnormal Lab Results
10/19/24
17:22
RBC 3.76 L 10^6/uL
(4.20-5.40)
MCV 99.7 H fL
(81.0-99.0)
MCH 33.0 H pg
(27.0-31.0)
Neutrophils % 26.9 L %
(42.2-75.2)
Lymphocytes % 56.2 H %
(20.5-51.1)
Monocytes % 11.3 H %
(1.7-9.3)
Glucose 103 H mg/dl
(70-99)
10/19/24 17:22
10/19/24 17:22
Vital Signs
Initial and Last Documented VS:
Initial Vital Signs
Temp Pulse Resp BP Pulse Ox
97.7 F 81 18 140/105 100
10/19/24 16:38 10/19/24 16:38 10/19/24 16:38 10/19/24 16:38 10/19/24 16:38
Last Documented Vital Signs
Temp Pulse Resp BP Pulse Ox
97.7 F 83 16 140/105 98
10/19/24 16:38 10/19/24 18:57 10/19/24 18:57 10/19/24 16:38 10/19/24 18:57
<Flavia Bartlett MD - Last Filed: 10/19/24 17:51>
Orders/Labs/Results
Orders:
Orders
10/19/24 16:55
IV Insert/Care/Rem.- Treatment PRN
10/19/24 16:59
EPINEPHrine PF [Adrenalin] 0.3 mg IM NOW STA
10/19/24 17:02
Diphenhydramine [Benadryl] 25 mg IV NOW STA
MethylPREDNISolone PF [Solu-Medrol Pf] 125 mg IV NOW STA
10/19/24 17:22
Complete Blood Count/With Diff Urgent
Comprehensive Metabolic Panel Urgent
10/19/24 18:10
0.9% Sodium Chloride 500 ml [Nss] 500 ml IV BOLUS
Abnormal Lab Results
10/19/24
17:22
RBC 3.76 L 10^6/uL
(4.20-5.40)
MCV 99.7 H fL
(81.0-99.0)
MCH 33.0 H pg
(27.0-31.0)
Neutrophils % 26.9 L %
(42.2-75.2)
Lymphocytes % 56.2 H %
(20.5-51.1)
Monocytes % 11.3 H %
(1.7-9.3)
Glucose 103 H mg/dl
(70-99)
10/19/24 17:22
10/19/24 17:22
Vital Signs
Initial and Last Documented VS:
Initial Vital Signs
Temp Pulse Resp BP Pulse Ox
97.7 F 81 18 140/105 100
10/19/24 16:38 10/19/24 16:38 10/19/24 16:38 10/19/24 16:38 10/19/24 16:38
Last Documented Vital Signs
Temp Pulse Resp BP Pulse Ox
97.7 F 83 16 140/105 98
10/19/24 16:38 10/19/24 18:57 10/19/24 18:57 10/19/24 16:38 10/19/24 18:57
[place];Sri Martinez PA-C - Last Filed: 10/19/24 19:44>
MDM/Problems Addressed
Differential Diagnosis Includes:
allergic reaction, viral syndrome, angioedema
MDM/Problems Addressed:
44-year-old female presents emergency department today with concerns of trouble swallowing and hoarseness to her voice. She has a history of mast cell activation syndrome. Episode of this was triggered today when she inhaled cologne. On arrival
to emergency department she is in no acute respiratory distress, however she does have a noticeable hoarseness to her voice. There is no uvula edema. She was given epinephrine IM as well as steroids and antihistamines through the IV. She also
given IV fluids. Reassessment, patient's symptoms have greatly improved, will discharge on prednisone taper and recommend to increase dose of home Benadryl. Patient stable for discharge. Encourage to continue monitor during her symptoms
Chronic conditions affecting care:
migraines, mast cell activation syndrome
<Sri Martinez PA-C - Last Filed: 10/19/24 19:44>
*Pulse Oximetry
Patient hypoxic: no
*Critical Care Note
Total Time (30-74mins, 75-104mins- exclusive of procedures): Not Applicable
Data Reviewed
Review of Other/Old Records Reveals: Records (Reviewed ER physician documentation from 07/30/2024 patient seen for acute hypokalemia and allergic reaction, patient with multiple ER visits for similar symptoms)
Source: patient and records
<Sri Martinez PA-C - Last Filed: 10/19/24 19:44>
Patient Management
Escalation/DeEscalation of care consider admission/obs:
admit not indicated patient stable for discharge
<Sri Martinez PA-C - Last Filed: 10/19/24 19:44>
Update Note
Update Note:
6:45 pm--Patient notes that her throat swelling and trouble swallowing have improved but now she notes tingling in her tongue. On exam, no objective swelling. Did consider dose of IV pepcid however patient had oral pepcid prior to arrival.
7:20 pm-- Patient drinking water without any difficulty. On exam, no uvula swelling, no tongue swelling. She does feel like she still has an abnormal sensation in her tongue. Patient was observed in our ER for 2 hours and did not have a significant
development of symptoms or any new physical exam findings. Hoarseness sounds greatly improved. Patient stable for discharge
ED Attending Note
<Sri Martinez PA-C - Last Filed: 10/19/24 19:44>
-
Portions of this chart may have been created with voice recognition software.� Occasional wrong word or��sound alike� substitutions may have occurred due to the inherent limitations of voice recognition software.
<Flavia Bartlett MD - Last Filed: 10/19/24 17:51>
ED Attending Note
Patient seen and examined by attending physician: Yes
I performed the substantive portion of visit, reviewed & personally made and approve the management plan that is documented in note by myself or JOSE.: Yes
ED Attending Note:
Patient appears well-perfused and comfortable. She does, however, display a hoarse voice which she states is unusual for her and very typical when she has a mast cell activation flare. Due to her hoarseness, decision made to proceed with IM
epinephrine. Patient's lungs are clear. She is not tachypneic or stridorous.
Discharge Plan
Departure
Patient Disposition: Home (Routine Discharge)
Date of Disposition: 10/19/24
Time of Disposition: 19:35
Patient with high blood pressure during this ER visit?: Yes
Condition: Good
Discharge Problem:
Allergic reaction, Mast cell activation syndrome
Instructions: Allergic reaction - ED discharge instructions
Prescriptions:
New
prednisone 10 mg Tablet
See Rx Instructions .ROUTE .COMPLEX Qty: 30 0RF
Rx Instructions:
Take By Mouth:
40 mg daily x3 days, 30 mg daily x3 days,
20 mg daily x3 days, 10 mg daily x3 days.
No Action
furosemide 40 mg Tablet
60 mg PO DAILY
cromolyn 100 mg/5 mL Concentrate
100 mg PO AC
ascorbic acid (vitamin C) [Vitamin C] 1,000 mg Tablet
1 g PO DAILY
acetaminophen 500 mg Tablet
1,000 mg PO TIDPRN PRN (Reason: mild pain)
lidocaine-prilocaine 2.5-2.5 % Cream
1 applic TOPICAL DAILYPRN PRN (Reason: before Xolair injection)
diphenhydramine HCl [Benadryl] 25 mg Capsule
50 mg PO HSPRN PRN (Reason: allergies)
azelastine 137 mcg (0.1 %) [place],Non-Aerosol
1 spray INTRANASAL BID
epinephrine [EpiPen] 0.3 mg/0.3 mL Auto-Injector
0.3 mg IM ONCE
albuterol sulfate 90 mcg/actuation Hfa Aerosol Inhaler
1 puff INHALATION R DAILYPRN PRN (Reason: allergies)
ipratropium bromide 42 mcg (0.06 %) [place],Non-Aerosol
1 spray INTRANASAL BID
fluticasone propionate 50 mcg/actuation [place]cher [place],Suspension
1 spray INTRANASAL HS
Systane Ultra 0.4-0.3 % Drops
1 drp RIGHT EYE DAILYPRN PRN (Reason: dry eye)
Xolair 150 mg Recon Soln
150 mg SC Q2W
cholestyramine (with sugar) 4 gram Powder In Packet
2 g PO BID
Saccharomyces boulardii 250 mg Capsule
250 mg PO AC
Pepcid Complete 10-800-165 mg Tablet,Chewable
1 tab PO DAILYPRN PRN (Reason: allergies)
levocetirizine [Xyzal] 5 mg Tablet
5 mg PO DAILYPRN PRN (Reason: allergies)
potassium chloride 20 mEq Tablet Extended Release
20 meq PO DAILY
Breztri Aerosphere 160-9-4.8 mcg/actuation Hfa Aerosol Inhaler
2 inh INHALATION R BID
quercetin 500 mg Capsule
500 mg PO AC
G.I. Detox+ capsule
2 cap PO BID
Histamine Digest capsule
1 cap PO AC
Proflora 4r capsule
1 cap PO BIDWMEAL
methylprednisolone 4 mg Tablet
4 mg PO UD Qty: 21 0RF
prednisone 10 mg tablet
10 mg PO DIRECTED Qty: 30 0RF
Rx Instructions:
4 tabs x 3 days, 3 tabs x 3 days, 2 tabs x 3 days, then 1 tab x 3 days
Referrals:
Beny Donahue MD [Family Provider] -
Activity Restrictions/Additional Instructions:
Please continue to monitor your symptoms.
Prednisone 10 mg tablets have been sent to your pharmacy:
Take By Mouth:
40 mg daily x3 days, 30 mg daily x3 days,
20 mg daily x3 days, 10 mg daily x3 days.
Please increase your Benadryl dose to 50 mg every 6-8 hours as needed for the next 2 days.
PLEASE RETURN TO THE EMERGENCY DEPARTMENT SHOULD YOU DEVELOP FEVERS OR CHILLS, TROUBLE BREATHING, TROUBLE SWALLOWING, LIP OR TONGUE SWELLING, OR ANY OTHER SIGNS OR SYMPTOMS WORRISOME TO YOU.
Interventions
Interventions:
*Risk Screen - Suicide Last Done: 10/19/24 16:38
*General Assessment Last Done: 10/19/24 16:38
*Neglect/Abuse Screening Last Done: 10/19/24 16:38
*ED COVID-19 Vaccine History Last Done: 10/19/24 16:50
ED- Cardiac Assessment Last Done: 10/19/24 17:35
ED- Pulmonary Assessment Last Done: 10/19/24 17:35
ED-Skin Assessment Last Done: 10/19/24 17:35
Discharge Date and Time
Print Language: GHANAIAN
[2024-10-19] MEDS: ADRENALIN 0.3 MG IM (17:06)
[2024-10-19] MEDS: BENADRYL 25 MG IV (17:20)
[2024-10-19] MEDS: SOLU-MEDROL PF 125 MG IV (17:20)
[2024-10-19 17:38] LABS: Hematocrit 37.5 % (37.0-47.0); Hemoglobin 12.4 g/dL (12.0-16.0); Mean Corp Hgb Conc. 33.1 g/dL (33.0-37.0); Mean Corpuscular Volume 99.7 fL (81.0-99.0); Mean Platelet Volume 10.4 fL (7.4-10.4); Platelet Count 198 10^3/uL (130-400); Red Blood Cell Count 3.76 10^6/uL (4.20-5.40); Red Cell Dist. Width 12.3 % (11.5-14.5); White Blood Cell Count 5.1 10^3/uL (4.8-10.8)
[2024-10-19 17:45] LABS: ALT (SGPT) 18 U/L (0-35); AST (SGOT) 22 U/L (14-36); Albumin 4.7 g/dl (3.5-5.0); Alkaline Phosphatase 103 U/L (38-126); Blood Urea Nitrogen 17 mg/dl (7-17); Calcium 8.9 mg/dl (8.4-10.2); Carbon Dioxide 30 mmol/L (22-30); Chloride 102 mmol/L (98-107); Glucose 103 mg/dl (70-99); Potassium 3.9 mmol/L (3.5-5.1); Sodium 139 mmol/L (135-145); Total Bilirubin 0.4 mg/dl (0.2-1.3); Total Protein 7.5 g/dl (6.3-8.2); eGFR > 60.00
[2024-10-19 17:59] LABS: % Eosinophils 4.4 % (0-6); % Immature Granulocytes 0.2 % (0-0.5); % Lymphocytes 56.2 % (20.5-51.1); % Monocytes 11.3 % (1.7-9.3); % Neutrophils 26.9 % (42.2-75.2); Absolute Basophils 0.1 10^3/uL (0-0.2); Absolute Eosinophils 0.2 10^3/uL (0-0.7); Absolute Lymphocytes 2.8 10^3/uL (1.2-3.4); Absolute Monocytes 0.6 10^3/uL (0.1-0.6); Absolute Neutrophils 1.4 10^3/uL (1.4-6.5); Nucleated Red Blood Cells % 0 %
[2024-10-19] MEDS: NSS 500 IV (18:55)
[2024-10-19 19:59] VITALS: BP 118/80
== END 2024-10-19 20:10 | disposition home or self-care (01) ==
LOC: EMR 16:37
PROVIDERS: Physician Assistant; EMERGENCY PHYSICIAN Emergency Medicine; FAMILY PHYSICIAN Family Medicine
DX: T78.40XA Allergy, unspecified, initial encounter (principal); D89.40 Mast cell activation, unspecified; R03.0 Elevated blood-pressure reading, without diagnosis of hypertension
CPT/HCPCS: 99284; 96372; 96374; 96375; 96361; 80053; 85025

== ENCOUNTER → 2024-11-05 12:40 | Outpatient (REF) | payer BC, SELFPAY | LOC: RAD 12:40 | PROVIDERS: ATTENDING PHYSICIAN Family Medicine; FAMILY PHYSICIAN Family Medicine | DX: R05.9 Cough, unspecified (principal) | CPT/HCPCS: 71046 ==

== ENCOUNTER 2025-01-01 09:53 | Emergency (ER) | payer BC, SELFPAY ==
[2025-01-01 10:14] VITALS: BP 164/99
[2025-01-01 10:46] VITALS: BP 141/92
--- NOTE | 2025-01-01 10:48 | ED.GENMED ---
History of Present Illness
General
Chief Complaint: Allergic Reaction
Source: patient and records
Exam Limitations: none
Time Seen by Provider: 01/01/25 10:35
History of Present Illness
History of Present Illness:
54yoF with a history of mast cell activation syndrome presenting for an allergic reaction. Symptoms began about 1 hour ago. 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 She states that it felt like her throat
and tongue swelled up. She administered her EpiPen around 10 AM this morning. She is currently feeling better but feels her symptoms are recurring. She also took p.o. Pepcid and Benadryl. No vomiting or diarrhea. Patient has been seen in the ED
numerous times for similar issues.
Past History
Past History
ED Past Medical History: Other (migraines mast cell activation)
ED Past Surgical History: Appendectomy and Gynecological; Negative
Social History
Tobacco: Non-smoker
Alcohol: None
Drug: None
Personal:
Living: with family
Employment: Employed
Family History
Family History: Hypertension; Negative Diabetes
Phy Exam
General Physical Exam
General Presentation: well appearing and no apparent distress
General age: appears stated age
General Skin: warm and dry
General Habitus: normal
General Mental: alert
ENT Exam
ENT Exam: normocephalic and other (No oropharyngeal swelling. Normal phonation. Tolerating oral secretions without difficulty. )
Cardiovascular Exam
Cardiovascular Exam: regular rate/rhythm
Pulmonary Exam
Pulmonary Exam: lungs clear, no respiratory distress, no rales, no crackles, no rhonchi and no wheezing
Neurological Exam
Neurological Exam: alert
Karely Coma Scale
Eye Opening: Spontaneous
Verbal Response: Oriented
Motor Response: Obeys Commands
GCS Total Score: 15
Skin Exam
Skin Exam: normal color and warm/dry
Psychiatric Exam
Psychiatric Exam: normal mood/affect
Course
Orders/Labs/Results
Orders:
Orders
01/01/25 10:45
0.9% Sodium Chloride 1000 ml [Nss] 1,000 ml IV BOLUS
Diphenhydramine [Benadryl] 25 mg IV NOW STA
MethylPREDNISolone PF [Solu-Medrol Pf] 125 mg IV NOW STA
01/01/25 10:46
Cardiac Monitoring- Treatment ONCE
Vital Signs
Initial and Last Documented VS:
Initial Vital Signs
Temp Pulse Resp BP Pulse Ox
98.5 F 106 18 164/99 98
01/01/25 10:14 01/01/25 10:14 01/01/25 10:14 01/01/25 10:14 01/01/25 10:14
Last Documented Vital Signs
Temp Pulse Resp BP Pulse Ox
98.5 F 80 14 114/86 95
01/01/25 10:14 01/01/25 12:45 01/01/25 12:45 01/01/25 12:00 01/01/25 12:45
MDM/Problems Addressed
Differential Diagnosis Includes:
54yoF here with an allergic reaction. Hx of mast cell activation syndrome. Started with throat/tongue swelling and administered her EpiPen. Now feeling improved. No associated rash, vomiting, or diarrhea. Patient is well-appearing in no distress.
No signs of angioedema noted and phonation is normal. Lungs clear to auscultation without wheezing or stridor. Differential diagnosis includes: Anaphylaxis, allergic reaction, mast activation syndrome
Initial ED plan: IV Benadryl, Solu-Medrol, and fluid bolus. Will monitor for several hours.
*Critical Care Note
Total Time (30-74mins, 75-104mins- exclusive of procedures): Not Applicable
Update Note
Update Note:
Patient monitored for >3 hours post epinephrine dose. She is asymptomatic on reassessment and vitals remain stable. She is stable for discharge. Patient has a protocol at home that she follows per her property claim rep/[facility] specialist. ED return
precautions reviewed. Patient in agreement with plan and was discharged in stable condition.
ED Attending Note
-
Portions of this chart may have been created with voice recognition software.� Occasional wrong word or��sound alike� substitutions may have occurred due to the inherent limitations of voice recognition software.
Discharge Plan
Departure
Patient Disposition: Home (Routine Discharge)
Date of Disposition: 01/01/25
Time of Disposition: 13:03
Patient with high blood pressure during this ER visit?: No
Discharge Problem:
Mast cell activation syndrome, Allergic reaction
Instructions: Anaphylaxis - Discharge instructions
Prescriptions:
No Action
furosemide 40 mg Tablet
60 mg PO DAILY
cromolyn 100 mg/5 mL Concentrate
100 mg PO AC
ascorbic acid (vitamin C) [Vitamin C] 1,000 mg Tablet
1 g PO DAILY
acetaminophen 500 mg Tablet
1,000 mg PO TIDPRN PRN (Reason: mild pain)
lidocaine-prilocaine 2.5-2.5 % Cream
1 applic TOPICAL DAILYPRN PRN (Reason: before Xolair injection)
diphenhydramine HCl [Benadryl] 25 mg Capsule
50 mg PO HSPRN PRN (Reason: allergies)
azelastine 137 mcg (0.1 %) [place],Non-Aerosol
1 spray INTRANASAL BID
epinephrine [EpiPen] 0.3 mg/0.3 mL Auto-Injector
0.3 mg IM ONCE
albuterol sulfate 90 mcg/actuation Hfa Aerosol Inhaler
1 puff INHALATION R DAILYPRN PRN (Reason: allergies)
ipratropium bromide 42 mcg (0.06 %) [place],Non-Aerosol
1 spray INTRANASAL BID
fluticasone propionate 50 mcg/actuation [place],Suspension
1 spray INTRANASAL HS
Systane Ultra 0.4-0.3 % Drops
1 drp RIGHT EYE DAILYPRN PRN (Reason: dry eye)
Xolair 150 mg Recon Soln
150 mg SC Q2W
cholestyramine (with sugar) 4 gram Powder In Packet
2 g PO BID
Saccharomyces boulardii 250 mg Capsule
250 mg PO AC
Pepcid Complete 10-800-165 mg Tablet,Chewable
1 tab PO DAILYPRN PRN (Reason: allergies)
levocetirizine [Xyzal] 5 mg Tablet
5 mg PO DAILYPRN PRN (Reason: allergies)
potassium chloride 20 mEq Tablet Extended Release
20 meq PO DAILY
Breztri Aerosphere 160-9-4.8 mcg/actuation Hfa Aerosol Inhaler
2 inh INHALATION R BID
quercetin 500 mg Capsule
500 mg PO AC
G.I. Detox+ capsule
2 cap PO BID
Histamine Digest capsule
1 cap PO AC
Proflora 4r capsule
1 cap PO BIDWMEAL
methylprednisolone 4 mg Tablet
4 mg PO UD Qty: 21 0RF
prednisone 10 mg tablet
10 mg PO DIRECTED Qty: 30 0RF
Rx Instructions:
4 tabs x 3 days, 3 tabs x 3 days, 2 tabs x 3 days, then 1 tab x 3 days
prednisone 10 mg Tablet
See Rx Instructions .ROUTE .COMPLEX Qty: 30 0RF
Rx Instructions:
Take By Mouth:
40 mg daily x3 days, 30 mg daily x3 days,
20 mg daily x3 days, 10 mg daily x3 days.
Referrals:
eBny Donahue MD [Family Provider] -
Activity Restrictions/Additional Instructions:
Take Benadryl every 6 hours as needed for itching/rash. Administer EpiPen with any trouble breathing or swallowing.
Please follow-up with your property claim rep. Return to the ER with any worsening symptoms or if you have to use your EpiPen.
Interventions
Interventions:
*Risk Screen - Suicide Last Done: 01/01/25 11:13
*Neglect/Abuse Screening Last Done: 01/01/25 11:13
*ED- Fall Risk Assessment Last Done: 01/01/25 11:13
*ED COVID-19 Vaccine History Last Done: 01/01/25 11:13
*Nursing Disposition Last Done: 01/01/25 13:40
ED- Cardiac Assessment Last Done: 01/01/25 11:13
ED- Pulmonary Assessment Last Done: 01/01/25 11:13
ED-Skin Assessment Last Done: 01/01/25 11:13
Discharge Date and Time
Discharge Date/Time: 01/01/25 13:41
Print Language: SUDANESE
[2025-01-01] MEDS: SOLU-MEDROL PF 125 MG IV (10:58)
[2025-01-01] MEDS: NSS 1000 IV (10:59)
[2025-01-01] MEDS: BENADRYL 25 MG IV (10:59)
[2025-01-01 12:00] VITALS: BP 114/86
== END 2025-01-01 13:41 | disposition home or self-care (01) ==
LOC: EMR 09:53
PROVIDERS: EMERGENCY PHYSICIAN Emergency Medicine; FAMILY PHYSICIAN Family Medicine
DX: D89.40 Mast cell activation, unspecified (principal); T78.40XA Allergy, unspecified, initial encounter; Y92.9 Unspecified place or not applicable; I10 Essential (primary) hypertension; Z82.49 Family history of ischemic heart disease and other diseases of the circulatory system; Z90.49 Acquired absence of other specified parts of digestive tract
CPT/HCPCS: 99282; 96374; 96375; 96361

== ENCOUNTER → 2025-01-11 16:42 | Outpatient (REF) | payer BC, SELFPAY | LOC: RAD 16:42 | PROVIDERS: ATTENDING PHYSICIAN Orthopaedic Surgery | DX: M25.512 Pain in left shoulder (principal) | CPT/HCPCS: 73030 ==

== ENCOUNTER → 2025-01-21 19:21 | Outpatient (REF) | payer BC, SELFPAY | LOC: MRI 3T 19:21 | PROVIDERS: ATTENDING PHYSICIAN Orthopaedic Surgery; FAMILY PHYSICIAN Family Medicine | DX: M54.2 Cervicalgia (principal) | CPT/HCPCS: 72141 ==

== ENCOUNTER → 2025-02-25 08:15 | Outpatient (REF) | payer BC, SELFPAY | LOC: CLAB 08:15 | PROVIDERS: Pathology Anatomic Pathology & Clinical Pathology | DX: L30.9 Dermatitis, unspecified (principal) | CPT/HCPCS: 88305 ==

== ENCOUNTER → 2025-05-14 12:08 | Outpatient (REF) | payer BC, SELFPAY ==
[2025-05-20 01:24] LABS: Bacterial Vaginosis by TMA Negative; Candida glabrata by TMA Negative; Candida species by TMA Negative; Trichomonas vaginalis by TMA Negative
== END ==
LOC: CLAB 12:08
PROVIDERS: ATTENDING PHYSICIAN Physician Assistant Medical
DX: N89.8 Other specified noninflammatory disorders of vagina (principal); Z01.419 Encounter for gynecological examination (general) (routine) without abnormal findings
CPT/HCPCS: 81513; 87481; 87661

== ENCOUNTER 2025-06-03 03:18 | Emergency (ER) | payer BC, SELFPAY ==
[2025-06-03] VITALS (8 sets, daily range): BP systolic 126–156; BP diastolic 78–109; BMI 27.4
[2025-06-03] MEDS: MORPHINE SULFATE 4 MG IV (04:13)
--- NOTE | 2025-06-03 04:15 | ED.GENMED ---
History of Present Illness
General
Chief Complaint: Urinary Symptoms
Source: patient
Exam Limitations: none
Time Seen by Provider: 06/03/25 03:29
Nursing documentation reviewed up to this point in time: agreed with
History of Present Illness
History of Present Illness:
see MDM
Past History
Past History
ED Past Medical History: Other (migraines mast cell activation)
ED Past Surgical History: Appendectomy and Gynecological; Negative
Social History
Tobacco: Non-smoker
Alcohol: None
Drug: None
Personal:
Living: with family
Employment: Employed
Family History
Family History: Hypertension; Negative Diabetes
Course
Orders/Labs/Results
Orders:
Orders
06/03/25 03:51
Morphine Sulfate 4 mg IV NOW STA
Phenazopyridine HCl [Pyridium] 200 mg PO NOW STA
06/03/25 03:52
CT Abd/pel Without Iv Or Oral Urgent
Comment:
Reason For Exam: R flank pain, dysuria
06/03/25 04:00
Complete Blood Count/With Diff Urgent
Comprehensive Metabolic Panel Urgent
Urinalysis Reflex To Culture Urgent
Date Specimen was Collected: 06/03/25
Time Specimen was Collected: 03:38
Urine Microscopic Reflex Cult Urgent
Urine Culture Urgent
FLOR Source: U
Specimen Description:
Date Specimen was Collected: 06/03/25
Time Specimen was Collected: 03:38
06/03/25 04:17
0.9% Sodium Chloride 500 ml [Nss] 500 ml IV BOLUS
06/03/25 05:14
LevoFLOXacin [Levaquin] 750 mg PO NOW STA
06/03/25 05:15
HYDROmorphone [Dilaudid] 0.5 mg IV NOW STA
Abnormal Lab Results
06/03/25
04:00
RBC 3.95 L 10^6/uL
(4.20-5.40)
MCH 32.7 H pg
(27.0-31.0)
Absolute Neuts (auto) 7.2 H 10^3/uL
(1.4-6.5)
Absolute Monos (auto) 0.9 H 10^3/uL
(0.1-0.6)
Ur Occult Blood Reflex 4+ A
(Negative)
Leukocyte Esterase Rfl 3+ A
(Negative)
Urine RBC 16-20 A /HPF
(0-2)
Urine WBC (Reflex) 80-90 A /HPF
(0-5)
Urine Bacteria (Reflex) Many A
(Negative)
Urine Albumin (Reflex) 3+ A
(Neg - Trace)
06/03/25 04:00
06/03/25 04:00
Vital Signs
Initial and Last Documented VS:
Initial Vital Signs
Temp Pulse Resp BP Pulse Ox
36.9 C 88 16 152/109 99
06/03/25 03:21 06/03/25 03:21 06/03/25 03:21 06/03/25 03:21 06/03/25 03:21
Last Documented Vital Signs
Temp Pulse Resp BP Pulse Ox
36.9 C 70 14 126/81 93
06/03/25 03:21 06/03/25 06:53 06/03/25 06:53 06/03/25 06:53 06/03/25 06:53
MDM/Problems Addressed
Differential Diagnosis Includes:
seeMDM
MDM/Problems Addressed:
Note:
CHIEF COMPLAINT(S)
Lower right back pain with spasm and increased urinary urgency.
HISTORY OF PRESENT ILLNESS
The patient is a 55-year-old female with a history of mast cell activation syndrome, currently taking diuretics for chronic inflammation associated with the condition here for dysuria, frequency, suprapubic pain, urgency. Approximately two days
ago, the patient reported increased urinary urgency, described as �having to go now,� and now today with accompanied by lower right back pain which felt sharp and started to wrap around the body. She woke up at 2:30 AM experiencing significant
discomfort after trying to use the bathroom.
The patient denies a history of kidney stones or urinary tract infections. She occasionally uses gabapentin for pain, alongside recent use of Tylenol to manage the current issue. She has not been on steroid medication.
no fever/chills, h/o kidney stones, vomiting, diarrhea, hematuria
PAST MEDICAL HISTORY
- Mast cell activation syndrome
- Small fiber neuropathy
SOCIAL HISTORY
There is no mention of tobacco, alcohol, or drug usage.
MEDICATIONS
- Diuretics at 40 mg (specific formulation not detailed)
- Antihistamines for mast cell activation syndrome
- Gabapentin used as needed
- Occasional use of Tylenol
REVIEW OF SYSTEMS
- Genitourinary: Increased urinary urgency with significant discomfort
- Musculoskeletal: Sharp pain in the lower right back spreading around
- Neurologic: Small fiber neuropathy reported, with heightened sensitivity to pain
PHYSICAL EXAM
- Nursing notes reviewed and vital signs reviewed.
GENERAL: Alert, uncomfortable
Neck: supple
CARDIAC: Regular rate and rhythm .
LUNGS: Clear breath sounds bilaterally, no acute respiratory distress, no wheezes/rales/rhonchi
ABDOMEN: Soft,moderate suprapubic tendreness, holding lower abdomen with hands; normal bowel sounds
flank notnender
NEUROLOGICAL: Alert and oriented, no focal neuro deficits
SKIN: Warm and dry, skin intact.
PSYCH: Normal and appropriate interaction.
PROBLEM LIST
Acute Problems:
- Lower right back pain with muscle spasm
- Increased urinary urgency
Chronic Problems:
- Mast cell activation syndrome
- Small fiber neuropathy
PLAN
1. Order an ultrasound of the bladder to assess for urinary retention or blockage.
2. Perform a dry CT scan of the abdomen to evaluate for possible kidney stones.
3. Prescribe a bladder relaxant medication, phenazopyridine, to address spasms (noting potential change in urine color).
4. Conduct urinalysis to check for infection.
5. Monitor kidney function with renal panel tests.
6. Discuss pain management options excluding morphine and codeine derivatives due to adverse reactions from mast cell activation syndrome.
DIFFERENTIAL DIAGNOSIS
The Differential Diagnosis includes, in no particular order and is not limited to:
1. Urinary tract infection
2. Kidney stones
3. Hydronephrosis
4. Pyelonephritis
5. Bladder infection
6. Interstitial cystitis
7. Bladder spasm secondary to diuretic use
8. Musculoskeletal pain or strain
9. Neurogenic bladder dysfunction
10. Obstructive uropathy
*Pulse Oximetry
SaO2: 98
Oxygen Mode of Delivery: Room air
ED Attending Note
-
Portions of this chart may have been created with voice recognition software.� Occasional wrong word or��sound alike� substitutions may have occurred due to the inherent limitations of voice recognition software.
Discharge Plan
Departure
Patient Disposition: Home (Routine Discharge)
Date of Disposition: 06/03/25
Time of Disposition: 06:20
Patient with high blood pressure during this ER visit?: No
Condition: Fair
Discharge Problem:
UTI (urinary tract infection), Flank pain
Instructions: Urinary Tract Infection, Adult (DC)
Prescriptions:
New
levofloxacin 750 mg tablet
750 mg PO DAILY Qty: 7 0RF
phenazopyridine [Pyridium] 200 mg tablet
200 mg PO TID PRN (Reason: Pain) Qty: 5 0RF
No Action
furosemide 40 mg Tablet
60 mg PO DAILY
cromolyn 100 mg/5 mL Concentrate
100 mg PO AC
ascorbic acid (vitamin C) [Vitamin C] 1,000 mg Tablet
1 g PO DAILY
acetaminophen 500 mg Tablet
1,000 mg PO TIDPRN PRN (Reason: mild pain)
lidocaine-prilocaine 2.5-2.5 % Cream
1 applic TOPICAL DAILYPRN PRN (Reason: before Xolair injection)
diphenhydramine HCl [Benadryl] 25 mg Capsule
50 mg PO HSPRN PRN (Reason: allergies)
azelastine 137 mcg (0.1 %) [place],Non-Aerosol
1 spray INTRANASAL BID
epinephrine [EpiPen] 0.3 mg/0.3 mL Auto-Injector
0.3 mg IM ONCE
albuterol sulfate 90 mcg/actuation Hfa Aerosol Inhaler
1 puff INHALATION R DAILYPRN PRN (Reason: allergies)
ipratropium bromide 42 mcg (0.06 %) [place],Non-Aerosol
1 spray INTRANASAL BID
fluticasone propionate 50 mcg/actuation [place],Suspension
1 spray INTRANASAL HS
Systane Ultra 0.4-0.3 % Drops
1 drp RIGHT EYE DAILYPRN PRN (Reason: dry eye)
Xolair 150 mg Recon Soln
150 mg SC Q2W
cholestyramine (with sugar) 4 gram Powder In Packet
2 g PO BID
Saccharomyces boulardii 250 mg Capsule
250 mg PO AC
Pepcid Complete 10-800-165 mg Tablet,Chewable
1 tab PO DAILYPRN PRN (Reason: allergies)
levocetirizine [Xyzal] 5 mg Tablet
5 mg PO DAILYPRN PRN (Reason: allergies)
potassium chloride 20 mEq Tablet Extended Release
20 meq PO DAILY
Breztri Aerosphere 160-9-4.8 mcg/actuation Hfa Aerosol Inhaler
2 inh INHALATION R BID
quercetin 500 mg Capsule
500 mg PO AC
G.I. Detox+ capsule
2 cap PO BID
Histamine Digest capsule
1 cap PO AC
Proflora 4r capsule
1 cap PO BIDWMEAL
methylprednisolone 4 mg Tablet
4 mg PO UD Qty: 21 0RF
prednisone 10 mg tablet
10 mg PO DIRECTED Qty: 30 0RF
Rx Instructions:
4 tabs x 3 days, 3 tabs x 3 days, 2 tabs x 3 days, then 1 tab x 3 days
prednisone 10 mg Tablet
See Rx Instructions .ROUTE .COMPLEX Qty: 30 0RF
Rx Instructions:
Take By Mouth:
40 mg daily x3 days, 30 mg daily x3 days,
20 mg daily x3 days, 10 mg daily x3 days.
Referrals:
Beny Donahue MD [Family Provider, Family Practice] - Follow up in 2-3 days
Activity Restrictions/Additional Instructions:
YOUR SYMPTOMS ARE FROM URINARY INFECTION
THERE WAS A LITTLE SWELLING OF YOUR RIGHT KIDNEY BUT NO SIGN OF A KIDNEY STONE
THIS COULD MEAN YOU PASSED A STONE EARLIER
YOU SHOULD TAKE LEVAQUIN ONCE A DAY FOR 7 DAYS STARTING TOMORROW FOR THE INECTION
YOU CAN TAKE PYRIDIUM 200 MG 3 TIMES A DAY FOR 2 DAYS FOR BLADDER PAIN
NEEDED TAKE TYLENOL EVERY 6 HOURS
RETURN FOR SEVERE PAIN, FEVER, VOMITING, OR ANY CONCERNS.
follow up with your doctor to ensure that the mild swelling of your kidney resolves.
Interventions
Interventions:
*Risk Screen - Suicide Last Done: 06/03/25 03:21
*General Assessment Last Done: 06/03/25 03:21
*Neglect/Abuse Screening Last Done: 06/03/25 03:44
*ED- Fall Risk Assessment Last Done: 06/03/25 03:44
*ED COVID-19 Vaccine History Last Done: 06/03/25 03:44
*Nursing Disposition Last Done: 06/03/25 06:53
ED-Female Genitourinary Assessment Last Done: 06/03/25 03:44
Discharge Date and Time
Discharge Date/Time: 06/03/25 06:54
Print Language: BOLIVIAN
[2025-06-03 04:21] LABS: Hematocrit 38.0 % (37.0-47.0); Hemoglobin 12.9 g/dL (12.0-16.0); Mean Corp Hgb Conc. 33.9 g/dL (33.0-37.0); Mean Corpuscular Volume 96.2 fL (81.0-99.0); Nucleated Red Blood Cells % 0 %; Platelet Count 191 10^3/uL (130-400); Red Cell Dist. Width 12.2 % (11.5-14.5)
[2025-06-03 04:25] LABS: Urine Character Cloudy (Clear)
[2025-06-03 04:37] LABS: ALT (SGPT) 18 U/L (0-35); AST (SGOT) 20 U/L (14-36); Albumin 4.3 g/dl (3.5-5.0); Alkaline Phosphatase 113 U/L (38-126); Blood Urea Nitrogen 10 mg/dl (7-17); Calcium 9.4 mg/dl (8.4-10.2); Carbon Dioxide 27 mmol/L (22-30); Chloride 107 mmol/L (98-107); Estimated Creatinine Clearance 105 ml/min; Glucose 98 mg/dl (70-99); Potassium 3.6 mmol/L (3.5-5.1); Sodium 139 mmol/L (135-145); Total Protein 7.0 g/dl (6.3-8.2); eGFR > 60.00
[2025-06-03 04:38] LABS: Urine Red Blood Cell 16-20 /HPF (0-2); Urine White Cell 80-90 /HPF (0-5)
[2025-06-03] MEDS: NSS 500 IV (04:38)
[2025-06-03] MEDS: LEVAQUIN 750 MG PO (05:23)
[2025-06-03] MEDS: DILAUDID 0.5 MG IV (05:24)
== END 2025-06-03 06:54 | disposition home or self-care (01) ==
LOC: EMR 03:18
PROVIDERS: Physician Assistant; EMERGENCY PHYSICIAN Emergency Medicine; FAMILY PHYSICIAN Family Medicine
DX: N39.0 Urinary tract infection, site not specified (principal); D89.40 Mast cell activation, unspecified
CPT/HCPCS: 99284; 96374; 96375; 74176; 80053; 81003; 81015; 85025; 87077; 87086

== ENCOUNTER 2025-06-14 18:43 | Emergency (ER) | payer BC, SELFPAY ==
[2025-06-14 18:45] VITALS: BP 157/95
[2025-06-14 19:59] VITALS: BMI 25.6
--- NOTE | 2025-06-14 20:16 | ED.GENMED ---
History of Present Illness
General
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
Source: patient and records
Exam Limitations: none
Time Seen by Provider: 06/14/25 19:54
History of Present Illness
History of Present Illness:
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 Patient was seen in the ED on 06/03/2025 for dysuria. She had a CT abdomen at that time which showed findings suggestive of cystitis as well as mild
right-sided hydronephrosis without evidence of obstructing stone. She was started on a course of Levaquin. Urine culture grew out 80,000 colonies of pansensitive E. coli. Her flank pain resolved shortly after starting the antibiotics although she
continued to have urinary frequency. Her PCP switched her to Cipro last week which she took for approximately 2 days without improvement so her PCP switched her to a third antibiotic, Bactrim, which she has been taking for the past 3 days. Her
symptoms at this point are mainly vaginal discomfort. She states it feels like a sharp, burning pain in her vagina after urination. She thought she may have felt a bulge at one point. She spoke to her PCP today and she was told to go to the ED to
be evaluated for a uterine prolapse. Patient denies any vaginal discharge, itching, concern for STDs. No fevers or chills. No vomiting.
Past History
Past History
ED Past Medical History: Other (migraines mast cell activation)
ED Past Surgical History: Appendectomy and Gynecological; Negative
Social History
Tobacco: Non-smoker
Alcohol: None
Drug: None
Personal:
Living: with family
Employment: Employed
Family History
Family History: Hypertension; Negative Diabetes
Phy Exam
General Physical Exam
General Presentation: well appearing and no apparent distress
General Skin: warm and dry
General Habitus: normal
General Mental: alert
General Hydration: appears well hydrated
ENT Exam
ENT Exam: normocephalic
Pulmonary Exam
Pulmonary Exam: no respiratory distress
Gastrointestinal Exam
Gastrointestinal Exam: soft, non distended, no cva tenderness and other (Mild suprapubic tenderness)
Genitourinary Exam Female
Exam Female: other (No obvious uterine prolapse noted. No significant discharge. No cervical motion tenderness. )
Neurological Exam
Neurological Exam: alert
[place] Coma Scale
Eye Opening: Spontaneous
Verbal Response: Oriented
Motor Response: Obeys Commands
GCS Total Score: 15
Skin Exam
Skin Exam: normal color and warm/dry
Psychiatric Exam
Psychiatric Exam: normal mood/affect
Course
Orders/Labs/Results
Orders:
Orders
06/14/25 20:14
Pelvis & Transvaginal US [US Pelvis W Transvag Combined] Urgent
Comment:
Reason For Exam: pelvic pain
06/14/25 20:19
Complete Blood Count/With Diff Urgent
Comprehensive Metabolic Panel Urgent
06/14/25 20:22
Urinalysis Reflex To Culture Urgent
Date Specimen was Collected: 06/14/25
Time Specimen was Collected: 20:21
Urine Microscopic Reflex Cult Urgent
06/14/25 23:38
Fluconazole [Diflucan] 150 mg PO NOW STA
Abnormal Lab Results
06/14/25 06/14/25
20:19 20:22
RBC 3.77 L 10^6/uL
(4.20-5.40)
Hct 36.8 L %
(37.0-47.0)
MCH 32.6 H pg
(27.0-31.0)
Neutrophils % 29.7 L %
(42.2-75.2)
Lymphocytes % 57.1 H %
(20.5-51.1)
Monocytes % 10.8 H %
(1.7-9.3)
Ur Occult Blood Reflex 1+ A
(Negative)
Urine Bacteria (Reflex) Few A
(Negative)
06/14/25 20:19
06/14/25 20:19
Vital Signs
Initial and Last Documented VS:
Initial Vital Signs
Temp Pulse Resp BP Pulse Ox
98.2 F 83 18 157/95 95
06/14/25 18:45 06/14/25 18:45 06/14/25 18:45 06/14/25 18:45 06/14/25 18:45
Last Documented Vital Signs
Temp Pulse Resp BP Pulse Ox
98.2 F 76 18 139/93 96
06/14/25 18:45 06/14/25 23:45 06/14/25 23:45 06/14/25 23:46 06/14/25 23:46
MDM/Problems Addressed
Differential Diagnosis Includes:
55yoF here with vaginal discomfort and burning. Currently on her 3rd antibiotic for a UTI. PCP sent her here to be evaluated for a possible uterine prolapse. She is hypertensive in triage with otherwise stable vitals. She is well-appearing in no
distress. No obvious uterine prolapse noted on speculum exam. No significant discharge noted and no CMT. Differential diagnosis includes: Atrophic vaginitis, yeast vaginitis, cystocele, UTI
Initial ED plan: Check CBC, CMP, UA, and pelvic ultrasound.
*Pulse Oximetry
SaO2: 97
Oxygen Mode of Delivery: Room air
Patient hypoxic: no
*Critical Care Note
Total Time (30-74mins, 75-104mins- exclusive of procedures): Not Applicable
Update Note
Update Note:
Labs unremarkable including normal white count, renal function, and glucose. No overt signs of infection on urinalysis. Only 0-2 WBCs noted compared to 80-90 WBCs on urinalysis from 06/03. Pelvic ultrasound negative for acute findings. Unclear
etiology of symptoms. No obvious signs of candidal infection although will trial Diflucan. One-time dose of 150 mg given in ED. Patient advised to follow-up with her PCP and gynecology. She was discharged in stable condition.
ED Attending Note
-
Portions of this chart may have been created with voice recognition software.� Occasional wrong word or��sound alike� substitutions may have occurred due to the inherent limitations of voice recognition software.
Discharge Plan
Departure
Patient Disposition: Home (Routine Discharge)
Date of Disposition: 06/14/25
Time of Disposition: 23:38
Patient with high blood pressure during this ER visit?: No
Discharge Problem:
Vaginal pain
Instructions: Vaginitis in adults
Prescriptions:
No Action
furosemide 40 mg Tablet
60 mg PO DAILY
cromolyn 100 mg/5 mL Concentrate
100 mg PO AC
ascorbic acid (vitamin C) [Vitamin C] 1,000 mg Tablet
1 g PO DAILY
acetaminophen 500 mg Tablet
1,000 mg PO TIDPRN PRN (Reason: mild pain)
lidocaine-prilocaine 2.5-2.5 % Cream
1 applic TOPICAL DAILYPRN PRN (Reason: before Xolair injection)
diphenhydramine HCl [Benadryl] 25 mg Capsule
50 mg PO HSPRN PRN (Reason: allergies)
azelastine 137 mcg (0.1 %) [place],Non-Aerosol
1 spray INTRANASAL BID
epinephrine [EpiPen] 0.3 mg/0.3 mL Auto-Injector
0.3 mg IM ONCE
albuterol sulfate 90 mcg/actuation Hfa Aerosol Inhaler
1 puff INHALATION R DAILYPRN PRN (Reason: allergies)
ipratropium bromide 42 mcg (0.06 %) [place],Non-Aerosol
1 spray INTRANASAL BID
fluticasone propionate 50 mcg/actuation [place],Suspension
1 spray INTRANASAL HS
Systane Ultra 0.4-0.3 % Drops
1 drp RIGHT EYE DAILYPRN PRN (Reason: dry eye)
Xolair 150 mg Recon Soln
150 mg SC Q2W
cholestyramine (with sugar) 4 gram Powder In Packet
2 g PO BID
Saccharomyces boulardii 250 mg Capsule
250 mg PO AC
Pepcid Complete 10-800-165 mg Tablet,Chewable
1 tab PO DAILYPRN PRN (Reason: allergies)
levocetirizine [Xyzal] 5 mg Tablet
5 mg PO DAILYPRN PRN (Reason: allergies)
potassium chloride 20 mEq Tablet Extended Release
20 meq PO DAILY
Breztri Aerosphere 160-9-4.8 mcg/actuation Hfa Aerosol Inhaler
2 inh INHALATION R BID
quercetin 500 mg Capsule
500 mg PO AC
G.I. Detox+ capsule
2 cap PO BID
Histamine Digest capsule
1 cap PO AC
Proflora 4r capsule
1 cap PO BIDWMEAL
methylprednisolone 4 mg Tablet
4 mg PO UD Qty: 21 0RF
prednisone 10 mg tablet
10 mg PO DIRECTED Qty: 30 0RF
Rx Instructions:
4 tabs x 3 days, 3 tabs x 3 days, 2 tabs x 3 days, then 1 tab x 3 days
prednisone 10 mg Tablet
See Rx Instructions .ROUTE .COMPLEX Qty: 30 0RF
Rx Instructions:
Take By Mouth:
40 mg daily x3 days, 30 mg daily x3 days,
20 mg daily x3 days, 10 mg daily x3 days.
levofloxacin 750 mg tablet
750 mg PO DAILY Qty: 7 0RF
phenazopyridine [Pyridium] 200 mg tablet
200 mg PO TID PRN (Reason: Pain) Qty: 5 0RF
Referrals:
Beny Donahue MD [Family Provider, Family Practice]
Benja Hartmann MD [Active, Gynecology]
Activity Restrictions/Additional Instructions:
Please call tomorrow to schedule a follow-up appointment with your family doctor and gynecology. Return to the ER with any new or worsening symptoms including fevers.
Interventions
Interventions:
*Risk Screen - Suicide Last Done: 06/14/25 19:59
*General Assessment Last Done: 06/14/25 19:59
*Neglect/Abuse Screening Last Done: 06/14/25 19:59
*ED- Fall Risk Assessment Last Done: 06/14/25 19:59
*ED COVID-19 Vaccine History Last Done: 06/14/25 19:59
*ED Influenza Vaccine History Last Done: 06/14/25 19:59
*Nursing Disposition Last Done: 06/14/25 23:46
ED-Female Genitourinary Assessment Last Done: 06/14/25 19:59
Discharge Date and Time
Discharge Date/Time: 06/14/25 23:47
Print Language: JAPANESE
[2025-06-14 20:28] LABS: Urine Character Clear (Clear)
[2025-06-14 20:36] LABS: Urine Red Blood Cell 0-2 /HPF (0-2); Urine White Cell 0-2 /HPF (0-5)
[2025-06-14 20:50] LABS: ALT (SGPT) 30 U/L (0-35); AST (SGOT) 20 U/L (14-36); Albumin 4.4 g/dl (3.5-5.0); Alkaline Phosphatase 113 U/L (38-126); Blood Urea Nitrogen 10 mg/dl (7-17); Calcium 9.1 mg/dl (8.4-10.2); Carbon Dioxide 24 mmol/L (22-30); Chloride 105 mmol/L (98-107); Estimated Creatinine Clearance 79 ml/min; Glucose 94 mg/dl (70-99); Potassium 4.3 mmol/L (3.5-5.1); Sodium 137 mmol/L (135-145); Total Protein 7.3 g/dl (6.3-8.2); eGFR > 60.00
[2025-06-14 20:57] LABS: Hematocrit 36.8 % (37.0-47.0); Hemoglobin 12.3 g/dL (12.0-16.0); Mean Corp Hgb Conc. 33.4 g/dL (33.0-37.0); Mean Corpuscular Volume 97.6 fL (81.0-99.0); Nucleated Red Blood Cells % 0 %; Platelet Count 213 10^3/uL (130-400); Red Cell Dist. Width 12.6 % (11.5-14.5)
[2025-06-14 21:00] VITALS: BP 115/94
[2025-06-14 22:12] VITALS: BP 130/86
[2025-06-14] MEDS: DIFLUCAN 150 MG PO (23:42)
[2025-06-14 23:46] VITALS: BP 139/93
== END 2025-06-14 23:47 | disposition home or self-care (01) ==
LOC: EMR 18:43
PROVIDERS: Physician Assistant; EMERGENCY PHYSICIAN Emergency Medicine; FAMILY PHYSICIAN Family Medicine
DX: R10.2 Pelvic and perineal pain (principal); D89.40 Mast cell activation, unspecified
CPT/HCPCS: 99284; 76830; 76856; 80053; 81003; 81015; 85025